=== PATIENT | female | born 1945 | race Caucasian/White ===

== ENCOUNTER 2016-12-22 19:20 | Inpatient (IN) | payer MEDICAID, MEDICARE ==
[~2016-12-22] VITALS: Ht 162.6 cm; Wt 83.9 kg
[~2016-12-22 19:20] MED LIST: ALBU2.5V13 NEB; ASCO-375 PO; Acetaminophen PO; BISA10SU12 RC; BLOO-125 IN; CALC-883 PO; DOCU100C36 PO; ESCI10TA PO; FERR-58 PO; FURO-152 PO; Folic Acid PO; HYDR-3326 PO; INSU100C; INSU100I14 SQ; INSU100V7 SQ; IPRA0.2S6 NEB; MAGN200T5 PO; MAGN400O6 PO; MULT-213 PO; MUPI22OI2 NS; NA P133E RC; OMEG-9 PO; PANT40TA2 PO; POTA-10 PO
--- NOTE | 2016-12-22 19:38 | NUR ---
Pt biba from facility for multiple complaints. Pt c/o constipation, unk last time had a BM. Pt appears lethargic and per daughter this is not base line for her. Pt easily woke and answers questions appropriately. PMD sent pt here for evaluation of the lethargy and abnormal labs. Pt resting in position of comfort for self. Resp even and unlabored. Pt maintaining >95% O2 sats on 2 L NC. Pt lungs diminished in bases. Pt's abd appears round and distended. Pt admits to pain upon palpation but currently at rest. Pt resting in position of comfort for self. Daughter at bedside. Awaiting further eval.
[2016-12-22] MEDS ORDERED: LACT10SO PO (19:53)
[2016-12-22] MEDS ORDERED: CAL HN PO (19:53)
[2016-12-22] MEDS ORDERED: SPIR25TA4 PO (19:53)
[2016-12-22] MEDS ORDERED: [UNRECOGNIZED DRUG - OTHER] PO (19:53)
[2016-12-22] MEDS ORDERED: HYDR-548 PO (19:53)
[2016-12-22] MEDS ORDERED: MIRT15TA PO (19:53)
[2016-12-22] MEDS ORDERED: CHOL10002 PO (19:53)
[2016-12-22] MEDS ORDERED: SIME80TA15 PO (19:53)
[2016-12-22] MEDS ORDERED: CRAN500C5 PO (19:53)
--- NOTE | 2016-12-22 20:00 | NUR ---
Pt c/o abd cramping and pain, feeling as though she needs to have a bm but is unable. MD notified. Awaiting further orders
[2016-12-22] MEDS ORDERED: METRONIDAZOLE 500 MG/NS 100ML 100 ML IV ONE ×2 (20:15→22:32)
[2016-12-22] MEDS ORDERED: IV NORMAL SALINE 1000 ML BAG IV ONE (20:15)
[2016-12-22] MEDS ORDERED: PIPERACILLIN SODIUM/TAZOBACTAM 3.375 G in IV DEXTROSE 5% 50 ML IV ONE (20:15)
--- NOTE | 2016-12-22 20:35 | NUR ---
Pt seen by MD. MEDINA established, labs drawn and sent.
[2016-12-22] MEDS ORDERED: PIPERACILLIN/TAZOBACTAM/D5W 50 ML IV ONE (20:52)
[2016-12-22 20:55] LABS: BASOPHILS % (AUTO) 0.2 % (0.0-2.0); EOSINOPHILS # (AUTO) 0.2 K/uL (0.0-0.7); EOSINOPHILS % (AUTO) 4.7 % (0.0-7.0); HEMATOCRIT 32.5 % (37-47); HEMOGLOBIN 11.2 G/DL (12.0-16.0); LYMPHOCYTES # (AUTO) 0.9 K/UL (0.8-4.8); LYMPHOCYTES % (AUTO) 27.1 % (20.5-51.5); MEAN CORPUSCULAR HEMOGLOBIN 31.8 UUG (27.0-31.0); MEAN CORPUSCULAR HGB CONC 35 g/dL (32.0-37.0); MEAN CORPUSCULAR VOLUME 92.1 FL (81.0-99.0); MONOCYTES # (AUTO) 0.3 K/UL (0.1-1.30); MONOCYTES % (AUTO) 7.9 % (0.0-11.0); NEUTROPHILS # (AUTO) 1.8 K/UL (1.8-8.9); NEUTROPHILS % (AUTO) 60.1 % (38.5-71.5); RED BLOOD CELL COUNT(AUTO) 3.52 MIL/UL (4.2-5.4); WHITE BLOOD COUNT (AUTO) 3.2 K/UL (4.0-11.2)
[2016-12-22 20:56] LABS: CARBON DIOXIDE 29 mmol/L (21-32); CHLORIDE 107 mmol/L (98-107); CREATININE 1.2 mg/dL (0.6-1.3); GLUCOSE 140 mg/dL (74-106); POTASSIUM 6.1 mmol/L (3.5-5.1); UREA NITROGEN, BLOOD 51 mg/dL (7-18)
[2016-12-22 20:59] LABS: PLATELET COUNT (AUTO) 57 K/UL (150-450)
--- NOTE | 2016-12-22 20:59 | NUR ---
Pt cleansed and changed. Pt had large BM. Pt conts to c/o abd pain. MD aware. [facility]
[2016-12-22 21:04] LABS: *BILIRUBIN,URIN NEGATIVE (NEGATIVE); *BLOOD, URINE NEGATIVE (NEGATIVE); *CLARITY,URINE CLEAR (CLEAR); *COLOR,URINE YELLOW (YELLOW); *KETONES,URINE NEGATIVE (NEGATIVE); *PROTEIN,URINE NEGATIVE (NEGATIVE); *UROBILINOGEN,URINE 0.2 E.U./dl (NORMAL); LEUKOCYTE ESTERASE ,URINE NEGATIVE (NEGATIVE); NITRITE, URINE NEGATIVE (NEGATIVE); UGLUCOSE NEGATIVE (NEGATIVE)
[2016-12-22 21:08] LABS: ALANINE AMINOTRANSFERASE 66 U/L (14-59); ALKALINE PHOSPHATASE 91 U/L (50-136); ASPARTATE AMINOTRANSFERASE 60 U/L (15-37); BILIRUBIN,DIRECT 0.2 mg/dL (0.0-0.2); BILIRUBIN,TOTAL 0.5 mg/dL (0.2-1.0); TOTAL PROTEIN, SERUM 8.1 g/dL (6.4-8.2)
[2016-12-22 21:12] LABS: BAND % (MANUAL) 1 % (0-10); EOSINOPHILS % (MANUAL) 5 % (0-8); LYMPHOCYTES % (MANUAL) 25 % (20-40); MONOCYTES % (MANUAL) 6 % (2-10); NEUTROPHILS % (MANUAL) 63 % (42-75)
[2016-12-22 21:16] LABS: SQUAMOUS EPITHELIAL CELL,UR FEW /HPF (NONE SEEN); WBC,URINE NONE SEEN /HPF (0-3)
--- NOTE | 2016-12-22 21:32 | NUR ---
Pt returned from CT via gurney. Fluid bolus started. First ABT infusion started, will monitor for any adverse reactions. Pt cont to moan and amada c/o abd pain. MD notified. Awaiting further orders.
[2016-12-22] MEDS ORDERED: FUROSEMIDE 20 MG/2 ML VIAL IV ONE (21:45)
[2016-12-22] MEDS ORDERED: SODIUM BICARBONATE 8.4% 50 MEQ/50 ML DISP.SYRIN IV ONE ×2 (21:45→22:25)
--- NOTE | 2016-12-22 21:59 | NUR ---
IV infiltrated. IV dc'd, catheter intact. Drsg applied. Second IV established, fluids and ABT infusion resumed.
[2016-12-22] MEDS ORDERED: HYDROMORPHONE 1 MG/1 ML DISP.SYRIN IV ONE (22:15)
[2016-12-22] MEDS ORDERED: ONDANSETRON IV *ER 4 MG/2 ML VIAL IV ONE (22:15)
[2016-12-22] MEDS ORDERED: FUROSEMIDE 40 MG/4 ML VIAL ONE (22:24)
[2016-12-22] MEDS ORDERED: ONDANSETRON 4 MG/2 ML VIAL ONE (22:25)
[2016-12-22] MEDS ORDERED: HYDROMORPHONE 1 MG/1 ML DISP.SYRIN ONE (22:25)
--- NOTE | 2016-12-22 22:47 | NUR ---
Report called to MARKELL Nowak. Preparing to transfer pt to the floor
--- NOTE | 2016-12-22 23:15 | NUR ---
RECEIVED PT FROM ER VIA [facility],ACCOMPANIED BY RYNA(PT'S DAUGHTER);PER PT'S DAUGHTER STATED THAT SHE'S CALLED FROM SNF W/C/O PT HAD SOB,ABDOMINAL PAIN,AT THAT TIME;PT'S CONFUSED.UPON ADMISSION,PT'S A/A/O X3-4;DENIED OF PAIN OR ANY DISCOMFORT,STATED THAT"I'M HUNGRY".UNIT ORIENTATION'S GIVEN TO PT AND HER DAUGHTER;THEY VERBALIZED UNDERSTANDING AND COOPERATIVE.PER DAUGHTER STATED THAT"MY MOM'S BED BOUND FOR 2 YEARS".CALLED FOR ADMISSION ORDER.
[2016-12-22 23:20] VITALS: BP 137/72
[2016-12-22] MEDS ORDERED: HYDROCODONE/APAP 10-325 MG TABLET PO PRN (23:45)
[2016-12-22] MEDS ORDERED: ZOLPIDEM 5 MG TABLET PO PRN (23:45)
[2016-12-22] MEDS ORDERED: SIMETHICONE 80 MG TAB.CHEW PO PRN (23:45)
[2016-12-22] MEDS ORDERED: ACETAMINOPHEN 325 MG TABLET PO PRN (23:45)
[2016-12-22] MEDS ORDERED: ONDANSETRON 4 MG/2 ML VIAL IV PRN (23:45)
[2016-12-22] MEDS ORDERED: FLEET ENEMA 133 ML BOTTLE RC PRN (23:45)
[2016-12-22] MEDS ORDERED: MAGNESIUM HYDROXIDE 30 ML LIQUID UDC PO PRN ×2 (23:45)
[2016-12-22] MEDS ORDERED: Z GUARD REMEDY PASTE 57 GM TUBE TOP PRN (23:45)
[2016-12-22] MEDS ORDERED: HYDROCODONE/APAP 5-325MG TABLET PO PRN (23:45)
--- NOTE | 2016-12-23 | NUR ---
ORDER'S GIVEN FROM MD;CARRIED IT OUT AND UPDATED THE PLAN OF CARE TO PT AND HER DAUGHTER;THEY VERBALIZED UNDERSTANDING.SKIN CARE AND REPOSITION.SNACK'S GIVEN TO PT REQUEST;PT TOLERATED WELL NOTED.TELEMETRY'S SR 68/MIN NOTED.KEPT COMFORT.BED ALARM'S ON.CONTINUED MONITORING TO PT.
--- NOTE | 2016-12-23 02:35 | NUR ---
PT'S CRYING AND C/O ABDOMINAL PAIN 10/10;NORCO 10 MG X2 TABS WERE GIVEN TO PT;EDUCATED TO PT;ASSISTAED TO REPOSITION;PERINEAL CARE DUE TO URINATION,KEPT COMFORT;20 MINUTES LATER,PT STATED THAT SHE FELT BETTER,PUT ON LEO'S POSITION.CONTINUED MONITORING TO PT.
[2016-12-23] MEDS ORDERED: HYDROCODONE/APAP 10-325 MG TABLET ONE (02:46)
[2016-12-23 03:40] VITALS: BP 136/70
--- NOTE | 2016-12-23 03:40 | NUR ---
PT SLEPT ONLY FOR 30 MINUTES;WOKE UP,SHE'S SCREAMING,CRYING;STATED THAT"I HAVE VERY BAD PAIN";CALLED [facility] WHO'S SENIOR SYSTEMS PROGRAMMER;GOT NEW ORDER;DILAUDID 1 MG IVP X1 SLOWLY;ASSISTED PT TO REPOSITION;STAYED W/HER FOR 10 MINUTES,PT'S ABLE TO SLEEP;UNLABORED BREATHING NOTED.TELEMETRY'S SR 71/MIN NOTED.CLOSELY MONITORING TO PT.
[2016-12-23] MEDS ORDERED: HYDROMORPHONE 1 MG/1 ML DISP.SYRIN IV PRN (04:00)
[2016-12-23] MEDS ORDERED: ONDANSETRON 4 MG/2 ML VIAL IV PRN (04:00)
[2016-12-23] MEDS ORDERED: HYDROMORPHONE 1 MG/1 ML DISP.SYRIN ONE (04:05)
[2016-12-23] MEDS ORDERED: ONDANSETRON 4 MG/2 ML VIAL ONE (04:48)
--- NOTE | 2016-12-23 06:30 | NUR ---
ASSISTED PT FOR AM CARE ON BED;PT'S COOPERATIVE W/ASSISTANCE,STATED THAT SHE FELT BETTER.NO DISTRESS NOTED IN THE SHIFT;NO SOB'S SEEN.BED ALARM'S ON.TELEMETRY'S SR 64/MIN.
[2016-12-23 06:32] LABS: BASOPHILS % (AUTO) 0.4 % (0.0-2.0); EOSINOPHILS # (AUTO) 0.1 K/uL (0.0-0.7); EOSINOPHILS % (AUTO) 2.4 % (0.0-7.0); HEMATOCRIT 32.7 % (37-47); LYMPHOCYTES # (AUTO) 0.6 K/UL (0.8-4.8); LYMPHOCYTES % (AUTO) 17.4 % (20.5-51.5); MEAN CORPUSCULAR HEMOGLOBIN 31.1 UUG (27.0-31.0); MEAN CORPUSCULAR HGB CONC 34 g/dL (32.0-37.0); MEAN CORPUSCULAR VOLUME 92.8 FL (81.0-99.0); MONOCYTES # (AUTO) 0.2 K/UL (0.1-1.30); MONOCYTES % (AUTO) 6.6 % (0.0-11.0); NEUTROPHILS # (AUTO) 2.8 K/UL (1.8-8.9); NEUTROPHILS % (AUTO) 73.2 % (38.5-71.5); PLATELET COUNT (AUTO) 51 K/UL (150-450); RED BLOOD CELL COUNT(AUTO) 3.53 MIL/UL (4.2-5.4); WHITE BLOOD COUNT (AUTO) 3.7 K/UL (4.0-11.2)
[2016-12-23 07:04] LABS: CARBON DIOXIDE 28 mmol/L (21-32); CHLORIDE 111 mmol/L (98-107); CHOLESTEROL 70 mg/dL (<200); CREATININE 1.4 mg/dL (0.6-1.3); GLUCOSE 161 mg/dL (74-106); HDL CHOLESTEROL 50 mg/dL (40-60); MAGNESIUM 2.2 mg/dL (1.8-2.4); PHOSPHOROUS 5.1 mg/dL (2.5-4.9); TRIGLYCERIDES 20 MG/DL (30-150); UREA NITROGEN, BLOOD 49 mg/dL (7-18)
[2016-12-23] MEDS ORDERED: BLOOD SUGAR DIAGNOSTIC 1 EACH STRIP VI SCH (07:30)
[2016-12-23] MEDS: FUROSEMIDE 20 MG TABLET PO SCH (08:20)
[2016-12-23] MEDS: CHOLECALCIFEROL 1,000 UNIT TABLET PO SCH (08:20)
[2016-12-23] MEDS: PANTOPRAZOLE SODIUM 40 MG TABLET.DR PO SCH (08:20)
[2016-12-23] MEDS: BISACODYL 10 MG SUPP.RECT RC SCH (08:21)
[2016-12-23] MEDS: FERROUS SULFATE 325 MG TABEC PO SCH (08:21)
[2016-12-23] MEDS: CALCIUM CARB/VITAMIN D 500MG-200UNITS TABLET PO SCH ×2 (08:21→17:17)
--- NOTE | 2016-12-23 08:30 | NUR ---
Patient sleepy, total feed, swallows pill well. O2 2L NC in place, no resp distress noted. Applied luisa. SCDs. Tele monitor= SR 70 at this time. All needs attended. Encouraged to call for any assistance, placed call light within hand reach. Will continue to monitor.
[2016-12-23] MEDS ORDERED: [UNRECOGNIZED DRUG - OTHER] PO SCH (09:00)
[2016-12-23] MEDS ORDERED: Medication Not On Formulary EA (Cranberry Extract (Cranberry Concentrate) 1,680 MG) PO SCH (09:00)
[2016-12-23 10:15] LABS: BAND % (MANUAL) 2 % (0-10); EOSINOPHILS % (MANUAL) 3 % (0-8); LYMPHOCYTES % (MANUAL) 12 % (20-40); MONOCYTES % (MANUAL) 5 % (2-10); NEUTROPHILS % (MANUAL) 78 % (42-75)
[2016-12-23] MEDS ORDERED: HYDROCODONE/APAP 10-325 MG TABLET PO PRN (10:28)
[2016-12-23] MEDS: OMEGA-3 FATTY ACIDS/FISH OIL CAPSULE PO SCH ×3 (11:30→17:17)
--- NOTE | 2016-12-23 11:30 | NUR ---
Aministered fish oil capsule, scanned okay but computer still showed that it wasn't, even though showed it was scanned on right side column. I entered not given to remove due time of capsule.....was given at 11:33.
[2016-12-23] MEDS: MAGNESIUM OXIDE 400 MG TABLET PO SCH (11:33)
[2016-12-23] MEDS: MULTIVIT, IRON, MIN NO. 8, FA TABLET PO SCH (11:33)
[2016-12-23] MEDS: SPIRONOLACTONE 25 MG TABLET PO SCH (11:33)
[2016-12-23] MEDS: LACTULOSE 20 G/30 ML LIQUID UDC PO SCH ×3 (11:33→17:17)
[2016-12-23 11:47] VITALS: BP 103/53
[2016-12-23] MEDS: PROTEIN SUPPLEMENT (PROSTAT) 30 ML LIQUID PO SCH ×2 (11:56→17:20)
[2016-12-23] MEDS ORDERED: ENOXAPARIN SODIUM 40 MG/0.4 ML DISP.SYRIN SQ SCH (12:00)
[2016-12-23] MEDS ORDERED: INSULIN REGULAR, HUMAN 300 UNIT/3 ML VIAL SQ PRN (12:15)
[2016-12-23] MEDS ORDERED: DEXTROSE 50% 50 ML DISP.SYRIN IV PRN (12:15)
--- NOTE | 2016-12-23 13:15 | NUR ---
D/C'd tele monitor as per Ruby Johnson, N.P. SR-71 at this time.
[2016-12-23] MEDS: IV NS 1000 ML 1,000 ML IV PRN (13:30)
--- NOTE | 2016-12-23 15:30 | NUR ---
Patient's son at bedside requetig to speak to Dr. Leach. Informed him that Ruby Johnson N.P. was here to see patient and entered new orders. Advised him of patient's lab results, meds admin.,etc. Saw Dr. Leach at nursing station and asked me to ask him to come to patients' room. Messaged delivered to .
[2016-12-23 16:00] VITALS: BP 116/56
[2016-12-23] MEDS: BLOOD SUGAR DIAGNOSTIC 1 EACH STRIP VI SCH ×2 (17:20→20:31)
--- NOTE | 2016-12-23 17:40 | NUR ---
I changed patients diet at noon time from cardiac regular to [id number]. Patient does not have teeth. Patient ate 90% of dinner. Upon finishing dinner, patient began to cry, stating she missess her daughter and she wants to see her. Patients son just left after staying with patient almost 4 hours. Patient not as lethargic as this morning. Lactulose X2 and DUlcolax supp given today. Patient has medium size soft brown BM. WIll continue to monitor and endorse to machine fitter.
--- NOTE | 2016-12-23 18:30 | NUR ---
Patient's daughter at bedside, states patient is in pain. Requesting Bruni X1 tab. Administered. Will continue to monitor and ask shift engineer to reassess patient at 1934.
[2016-12-23] MEDS: HYDROCODONE/APAP 10-325 MG TABLET PO PRN (18:34)
[2016-12-23 19:00] VITALS: BP 119/54
--- NOTE | 2016-12-23 19:45 | NUR ---
PATIENT AWAKE IN BED WITH DAUGHTER AT BEDSIDE. PATIENT IS A/OX4. DENIES PAIN OR DISCOMFORT. NO RESP. DISTRESS NOTED, CONTINUED ON O2 2L NC SATING WELL. VS WNL. BED ALARM ON. CALL LIGHT IN REACH. ALL NEEDS ATTENDED. WILL CONTINUE TO MONITOR. Addendum: 12/25/16 at 0431 by COLIN SHANKS LVN PLEASE DISREGARD. WRONG DATE.
--- NOTE | 2016-12-23 19:45 | NUR ---
PATIENT AWAKE IN BED. A/O X3. DENIES PAIN AT THIS TIME. NO RESP. DISTRESS NOTED. ON O2 2L NC SATING 96%. ALL OTHER VSS. IVF INFUSING WELL TO LEFT FA #20 GAUGE. BED ALARM ON. CALL LIGHT IN REACH. ALL NEEDS ATTENDED. WILL CONTINUE TO MONITOR AND ASSESS.
--- NOTE | 2016-12-23 20:25 | NUR ---
PATIENT AWAKE IN BED. HAVING LARGE LOOSE BOWL MOVEMENTS. STOOL IS DARK BLACK COLORED AND RED COLOR NOTED IN DIAPER. NOTIFIED DR. ESPITIA FOR FURTHER ORDERS. STOOL FOR OB SENT TO LAB. WILL CONTINUE TO MONITOR.
[2016-12-23] MEDS: MIRTAZAPINE 15 MG TABLET PO SCH (20:26)
[2016-12-23 20:41] LABS: *OCCULT BLOOD STOOL POSITIVE (NEGATIVE)
[2016-12-24 05:00] VITALS: BP 107/55
[2016-12-24] MEDS: IV NS 1000 ML 1,000 ML IV PRN (05:55)
--- NOTE | 2016-12-24 06:00 | NUR ---
PATIENT RESTING IN BED. SLEPT WELL THROUGHOUT THE NIGHT. PATIENT HAD LARGE LOOSE BM, NO BLOOD NOTED IN DIAPER. VS WNL. DENIES PAIN OR DISCOMFORT. NO RESP. DISTRESS NOTED. BED ALARM ON. CALL LIGHT IN REACH. ALL NEEDS ATTENDED.
[2016-12-24] MEDS: PANTOPRAZOLE SODIUM 40 MG TABLET.DR PO SCH (06:01)
[2016-12-24] MEDS: BLOOD SUGAR DIAGNOSTIC 1 EACH STRIP VI SCH ×4 (06:31→20:44)
[2016-12-24 06:52] LABS: BASOPHILS % (AUTO) 0.5 % (0.0-2.0); EOSINOPHILS # (AUTO) 0.1 K/uL (0.0-0.7); EOSINOPHILS % (AUTO) 4.4 % (0.0-7.0); LYMPHOCYTES # (AUTO) 0.8 K/UL (0.8-4.8); LYMPHOCYTES % (AUTO) 31.2 % (20.5-51.5); MEAN CORPUSCULAR HEMOGLOBIN 30.4 UUG (27.0-31.0); MEAN CORPUSCULAR HGB CONC 33 g/dL (32.0-37.0); MEAN CORPUSCULAR VOLUME 92.4 FL (81.0-99.0); MONOCYTES # (AUTO) 0.2 K/UL (0.1-1.30); MONOCYTES % (AUTO) 8.5 % (0.0-11.0); NEUTROPHILS # (AUTO) 1.4 K/UL (1.8-8.9); NEUTROPHILS % (AUTO) 55.4 % (38.5-71.5)
[2016-12-24 06:54] LABS: HEMATOCRIT 26.8 % (37-47); HEMOGLOBIN 8.8 G/DL (12.0-16.0); WHITE BLOOD COUNT (AUTO) 2.5 K/UL (4.0-11.2)
[2016-12-24 06:57] LABS: CARBON DIOXIDE 30 mmol/L (21-32); CHLORIDE 113 mmol/L (98-107); CREATININE 1.3 mg/dL (0.6-1.3); GLUCOSE 108 mg/dL (74-106); MAGNESIUM 2.4 mg/dL (1.8-2.4); PHOSPHOROUS 4.2 mg/dL (2.5-4.9); PLATELET COUNT (AUTO) 49 K/UL (150-450); POTASSIUM 4.5 mmol/L (3.5-5.1); UREA NITROGEN, BLOOD 54 mg/dL (7-18)
[2016-12-24] MEDS ORDERED: PANTOPRAZOLE SODIUM 40 MG TABLET.DR PO SCH (07:00)
--- NOTE | 2016-12-24 07:10 | NUR ---
RECEIVED REPORT FROM LAB REGARDING CRITICAL LAB VALUES. CALLED OUT TO DR. ESPITIA FOR FURTHER ORDERS. WILL CONTINUE TO MONITOR.
--- NOTE | 2016-12-24 07:44 | NUR ---
SPOKE WITH DR. ESPITIA. RECEIVED VERBAL ORDER TO HOLD BLOOD THINNERS. INFORMED MD THAT PATIENT IS NOT ON ANY BLOOD THINNER AT THIS TIME. NO ADDITIONAL ORDERS NOTED. ENDORSED TO AM SHIFT, ALL NEEDS ATTENDED. WILL CONTINUE TO MONITOR.
[2016-12-24] MEDS: LACTULOSE 20 G/30 ML LIQUID UDC PO SCH (08:54)
[2016-12-24] MEDS: FUROSEMIDE 20 MG TABLET PO SCH (08:54)
[2016-12-24] MEDS: OMEGA-3 FATTY ACIDS/FISH OIL CAPSULE PO SCH ×3 (08:54→17:38)
[2016-12-24] MEDS: CALCIUM CARB/VITAMIN D 500MG-200UNITS TABLET PO SCH ×2 (08:55→17:39)
[2016-12-24] MEDS: CHOLECALCIFEROL 1,000 UNIT TABLET PO SCH (08:55)
[2016-12-24] MEDS: SPIRONOLACTONE 25 MG TABLET PO SCH (08:55)
[2016-12-24] MEDS: MAGNESIUM OXIDE 400 MG TABLET PO SCH (08:55)
[2016-12-24] MEDS: MULTIVIT, IRON, MIN NO. 8, FA TABLET PO SCH (08:55)
[2016-12-24] MEDS: FERROUS SULFATE 325 MG TABEC PO SCH (08:55)
[2016-12-24] MEDS: BISACODYL 10 MG SUPP.RECT RC SCH (08:56)
[2016-12-24] MEDS: PROTEIN SUPPLEMENT (PROSTAT) 30 ML LIQUID PO SCH ×3 (08:57→17:39)
[2016-12-24] MEDS ORDERED: LACTULOSE 20 G/30 ML LIQUID UDC PO PRN (10:00)
[2016-12-24] MEDS: HYDROCODONE/APAP 10-325 MG TABLET PO PRN ×2 (10:20→17:39)
[2016-12-24 11:04] VITALS: BP 126/61
[2016-12-24 12:16] LABS: BASOPHILS % (MANUAL) 1 % (0-2); EOSINOPHILS % (MANUAL) 3 % (0-8); LYMPHOCYTES % (MANUAL) 30 % (20-40); MONOCYTES % (MANUAL) 6 % (2-10); NEUTROPHILS % (MANUAL) 60 % (42-75)
[2016-12-24 15:03] VITALS: BP 109/55
[2016-12-24 19:00] VITALS: BP 99/50
--- NOTE | 2016-12-24 19:00 | NUR ---
PT. RESTING IN BED AND ABLE TO REPOSITION WITH ASSIST Q 2 HRS. 2L VIA N/C. GOOD APPETITE. INCONTINENCE CARE PRN. DARK STOOL TODAY PER CIVIL ENGINEERING SPECIALIST. STOOL COLLECTION PENDING. GOOD PAIN CONTROL. NO ACUTE DISTRESS.
--- NOTE | 2016-12-24 19:45 | NUR ---
PATIENT AWAKE IN BED WITH DAUGHTER AT BEDSIDE. PATIENT IS A/OX4. DENIES PAIN OR DISCOMFORT. NO RESP. DISTRESS NOTED, CONTINUED ON O2 2L NC SATING WELL. VS WNL. BED ALARM ON. CALL LIGHT IN REACH. ALL NEEDS ATTENDED. WILL CONTINUE TO MONITOR.
[2016-12-24] MEDS: MIRTAZAPINE 15 MG TABLET PO SCH (20:44)
--- NOTE | 2016-12-24 21:00 | NUR ---
PATIENTS BLOOD SUGAR 157. PATIENT REFUSED INSULIN TO BE GIVEN. WILL CONTINUE TO MONITOR.
[2016-12-25 05:00] VITALS: BP 107/48
[2016-12-25] MEDS: PANTOPRAZOLE SODIUM 40 MG TABLET.DR PO SCH (06:10)
--- NOTE | 2016-12-25 06:20 | NUR ---
PATIENT REFUSED AM LAB DRAWS.
[2016-12-25] MEDS: BLOOD SUGAR DIAGNOSTIC 1 EACH STRIP VI SCH ×2 (06:39→11:52)
--- NOTE | 2016-12-25 06:49 | NUR ---
PATIENT AWAKE IN BED. PATIENT STATED THAT SHE DID NOT REFUSE ANY LAB DRAWS THIS MORNING. WHEN APPROACHED BY HOTBED OPERATOR PATIENT STATED SHE WAS STILL HALF-ASLEEP. PATIENT WANTS HER LABS DRAWN. CALLED OUT TO LAB TO RE-DRAW.
[2016-12-25] MEDS: OMEGA-3 FATTY ACIDS/FISH OIL CAPSULE PO SCH ×2 (07:56→11:53)
[2016-12-25] MEDS: PROTEIN SUPPLEMENT (PROSTAT) 30 ML LIQUID PO SCH ×2 (07:57→11:54)
[2016-12-25] MEDS: FUROSEMIDE 20 MG TABLET PO SCH (08:01)
[2016-12-25] MEDS: SPIRONOLACTONE 25 MG TABLET PO SCH (08:01)
[2016-12-25] MEDS: CALCIUM CARB/VITAMIN D 500MG-200UNITS TABLET PO SCH (08:01)
[2016-12-25] MEDS: MULTIVIT, IRON, MIN NO. 8, FA TABLET PO SCH (08:01)
[2016-12-25] MEDS: FERROUS SULFATE 325 MG TABEC PO SCH (08:01)
[2016-12-25] MEDS: CHOLECALCIFEROL 1,000 UNIT TABLET PO SCH (08:01)
[2016-12-25] MEDS: MAGNESIUM OXIDE 400 MG TABLET PO SCH (08:02)
[2016-12-25 08:19] LABS: BASOPHILS % (AUTO) 0.4 % (0.0-2.0); EOSINOPHILS # (AUTO) 0.1 K/uL (0.0-0.7); EOSINOPHILS % (AUTO) 5.4 % (0.0-7.0); HEMATOCRIT 26.5 % (37-47); HEMOGLOBIN 8.8 G/DL (12.0-16.0); LYMPHOCYTES # (AUTO) 0.8 K/UL (0.8-4.8); LYMPHOCYTES % (AUTO) 33.3 % (20.5-51.5); MEAN CORPUSCULAR HEMOGLOBIN 30.4 UUG (27.0-31.0); MEAN CORPUSCULAR HGB CONC 33 g/dL (32.0-37.0); MEAN CORPUSCULAR VOLUME 91.8 FL (81.0-99.0); MONOCYTES # (AUTO) 0.2 K/UL (0.1-1.30); MONOCYTES % (AUTO) 7.4 % (0.0-11.0); NEUTROPHILS # (AUTO) 1.2 K/UL (1.8-8.9); NEUTROPHILS % (AUTO) 53.5 % (38.5-71.5); RED BLOOD CELL COUNT(AUTO) 2.89 MIL/UL (4.2-5.4)
[2016-12-25] MEDS: HYDROCODONE/APAP 10-325 MG TABLET PO PRN ×2 (08:20→16:55)
--- NOTE | 2016-12-25 08:20 | NUR ---
PATIENT IS AWAKE ALERT AND ORIENTED STATED THAT SHE HAS GENERALISED PAIN IN HER SHOULDERS BACK ETC MEDICATED ORDERED.NO S/S OF HYPO/HYPERGLYCEMIC REACTIONS AT THIS TIME.MADE COMFORTABLE.
[2016-12-25] MEDS: BISACODYL 10 MG SUPP.RECT RC SCH (08:21)
[2016-12-25 08:47] LABS: CARBON DIOXIDE 30 mmol/L (21-32); CHLORIDE 107 mmol/L (98-107); CREATININE 1.1 mg/dL (0.6-1.3); GLUCOSE 103 mg/dL (74-106); MAGNESIUM 2.2 mg/dL (1.8-2.4); PHOSPHOROUS 3.3 mg/dL (2.5-4.9); UREA NITROGEN, BLOOD 48 mg/dL (7-18)
[2016-12-25 08:52] LABS: WHITE BLOOD COUNT (AUTO) 2.3 K/UL (4.0-11.2)
[2016-12-25 08:55] LABS: PLATELET COUNT (AUTO) 48 K/UL (150-450)
--- NOTE | 2016-12-25 09:00 | NUR ---
RECEIVED A CALL FROM THE LAB [place] [phone] [place] [phone] YESTERDAY INFORMED SIERRA RAO WITH NO NEW ORDERS AT THIS TIME.
[2016-12-25 10:14] LABS: BASOPHILS % (MANUAL) 1 % (0-2); EOSINOPHILS % (MANUAL) 5 % (0-8); LYMPHOCYTES % (MANUAL) 32 % (20-40); MONOCYTES % (MANUAL) 7 % (2-10); NEUTROPHILS % (MANUAL) 54 % (42-75)
[2016-12-25 10:19] LABS: REACTIVE LYMPHOCYTES 1 % (0-0)
--- NOTE | 2016-12-25 10:49 | NUR ---
Discharge Plan: The patient's discharge plan is to return back to [facility] [ ; [address] [place] [address]] once medically cleared. Spoke to Caty, hallie from [facility], who confirmed that they will re-admit the patient once stable. Spoke with Adolfo [[phone]] who is aware and agreeable with the discharge plan.
[2016-12-25 11:38] VITALS: BP 118/47
--- NOTE | 2016-12-25 13:41 | NUR ---
NEW ORDERS NOTED FROM SIERRA RAO TO DISCHARGE PATIENT BACK TO THE [facility] TODAY AND NOTED
[2016-12-25 16:06] VITALS: BP 103/52
--- NOTE | 2016-12-25 16:45 | NUR ---
CALLED THE [facility] AND REPORT GIVEN TO THE RN WAVE SOLDERING MACHINE OPERATOR FOR CONTINUING CARE.
--- NOTE | 2016-12-25 16:55 | NUR ---
THE AMBULANCE IS HERE TO ROOF FOREMAN THE PATIENT AND SHE STATED THAT SHE WANTS A PAIN MEDICATION BEFORE SHE IS PICKED UP PAIN MEDICATION GIVEN ORDERED AND PATIENT WAS INSTRUCTED TO FOLLOW UP WITH HER PRIMARY DOCTOR WITHIN THE NEXT ONE TO TWO WEEKS AND SHE EXPRESSED UNDERSTANDING PATIENTS SON AND DAUGHTER IS AT THE BEDSIDE.
--- NOTE | 2016-12-25 17:10 | NUR ---
PATIENT NOW LEAVING THE FACILITY AND STATED FEELS BETTER ALREADY PAIN LEVINE.
== END 2016-12-25 17:10 | DRG 279 ==
LOC: ER 19:21 → TELE 22:53 → MED 12-23 13:30
PROVIDERS: ADMIT Family Medicine; ATTEND Family Medicine
DX: K72.90 Hepatic failure, unspecified without coma (principal); N17.0 Acute kidney failure with tubular necrosis; E43 Unspecified severe protein-calorie malnutrition; I50.33 Acute on chronic diastolic (congestive) heart failure; D61.818 Other pancytopenia; C22.0 Liver cell carcinoma; K57.91 Diverticulosis of intestine, part unspecified, without perforation or abscess with bleeding; D68.59 Other primary thrombophilia; D68.4 Acquired coagulation factor deficiency; E87.5 Hyperkalemia; I11.0 Hypertensive heart disease with heart failure; B19.20 Unspecified viral hepatitis C without hepatic coma; E66.9 Obesity, unspecified; Z68.31 Body mass index [BMI] 31.0-31.9, adult; Z74.09 Other reduced mobility; K59.09 Other constipation; M81.0 Age-related osteoporosis without current pathological fracture; K74.69 Other cirrhosis of liver; T50.0X5A Adverse effect of mineralocorticoids and their antagonists, initial encounter; Y92.129 Unspecified place in nursing home as the place of occurrence of the external cause; Z87.891 Personal history of nicotine dependence; K29.70 Gastritis, unspecified, without bleeding; J44.9 Chronic obstructive pulmonary disease, unspecified; F03.90 Unspecified dementia, unspecified severity, without behavioral disturbance, psychotic disturbance, mood disturbance, and anxiety; E78.5 Hyperlipidemia, unspecified; E11.9 Type 2 diabetes mellitus without complications; M19.90 Unspecified osteoarthritis, unspecified site; Z79.899 Other long term (current) drug therapy; Z79.4 Long term (current) use of insulin
CPT/HCPCS: 36415; 51702; 70030-TC; 71010; 83605; 83735; 84100; 85025; 85730; 87040; 87086; 92610; 93005; A4663; J1170; J1815; J1940; J2405; J2543; J3490; J7030; J7040

== ENCOUNTER 2017-01-08 20:22 | Inpatient (IN) | payer MEDICAID, MEDICARE ==
[~2017-01-08] VITALS: Ht 162.6 cm; Wt 79.1 kg
[~2017-01-08 20:22] MED LIST changes: -ALBU2.5V13 NEB; -ASCO-375 PO; +CAL HN PO; +CHOL10002 PO; +CRAN500C5 PO; -DOCU100C36 PO; -ESCI10TA PO; -Folic Acid PO; -HYDR-3326 PO; +HYDR-548 PO; -INSU100C; -INSU100I14 SQ; -IPRA0.2S6 NEB; +LACT10SO PO; +MIRT15TA PO; -MUPI22OI2 NS; +SIME80TA15 PO; +SPIR25TA4 PO; +[UNRECOGNIZED DRUG - OTHER] PO
[2017-01-08] MEDS ORDERED: ZOLP5TAB8 PO (20:39)
[2017-01-08] MEDS ORDERED: HYDR-3980 PO ×2 (20:39)
[2017-01-08] MEDS ORDERED: INSU100V10 SQ (20:39)
[2017-01-08] MEDS ORDERED: QUET25TA PO ×2 (20:39)
[2017-01-08] MEDS ORDERED: ACET-2154 PO (20:39)
[2017-01-08] MEDS ORDERED: MAG355OR18 PO (20:39)
[2017-01-08] MEDS ORDERED: CALC-20 PO (20:39)
--- NOTE | 2017-01-08 20:48 | NUR ---
PER ER CONTACTED ONCOLOGIST AMELIA AUGUSTE MD @ CELL # , AND OFFICE # WHICH IS FORWARDED TO CELL, LEFT MESSAGE TO C/B EMERGENCY NUMBER ...
[2017-01-08 20:57] LABS: BASOPHILS % (AUTO) 0.4 % (0.0-2.0); EOSINOPHILS # (AUTO) 0.1 K/uL (0.0-0.7); EOSINOPHILS % (AUTO) 5.4 % (0.0-7.0); HEMOGLOBIN 8.3 G/DL (12.0-16.0); LYMPHOCYTES # (AUTO) 0.6 K/UL (0.8-4.8); LYMPHOCYTES % (AUTO) 26.2 % (20.5-51.5); MEAN CORPUSCULAR HEMOGLOBIN 30.7 UUG (27.0-31.0); MEAN CORPUSCULAR HGB CONC 33 g/dL (32.0-37.0); MEAN CORPUSCULAR VOLUME 92.3 FL (81.0-99.0); MONOCYTES # (AUTO) 0.2 K/UL (0.1-1.30); MONOCYTES % (AUTO) 7.1 % (0.0-11.0); NEUTROPHILS # (AUTO) 1.4 K/UL (1.8-8.9); NEUTROPHILS % (AUTO) 60.9 % (38.5-71.5); PLATELET COUNT (AUTO) 61 K/UL (150-450); RED BLOOD CELL COUNT(AUTO) 2.71 MIL/UL (4.2-5.4)
[2017-01-08 21:01] LABS: CARBON DIOXIDE 28 mmol/L (21-32); CHLORIDE 108 mmol/L (98-107); GLUCOSE 166 mg/dL (74-106); POTASSIUM 4.6 mmol/L (3.5-5.1); UREA NITROGEN, BLOOD 27 mg/dL (7-18)
[2017-01-08 21:15] LABS: WHITE BLOOD COUNT (AUTO) 2.3 K/UL (4.0-11.2)
[2017-01-08 21:16] LABS: ALANINE AMINOTRANSFERASE 59 U/L (14-59); ALKALINE PHOSPHATASE 88 U/L (50-136); ASPARTATE AMINOTRANSFERASE 53 U/L (15-37); BILIRUBIN,DIRECT 0.1 mg/dL (0.0-0.2); BILIRUBIN,TOTAL 0.3 mg/dL (0.2-1.0); LIPASE 385 U/L (73-393); TOTAL PROTEIN, SERUM 6.5 g/dL (6.4-8.2)
[2017-01-08 21:25] LABS: LYMPHOCYTES % (MANUAL) 29 % (20-40); NEUTROPHILS % (MANUAL) 57 % (42-75)
[2017-01-08 21:26] LABS: EOSINOPHILS % (MANUAL) 2 % (0-8); MONOCYTES % (MANUAL) 12 % (2-10)
--- NOTE | 2017-01-08 21:55 | NUR ---
Pt. admitted to [facility], under care of Dr. Spring Belongs List completed
[2017-01-08 22:15] VITALS: BP 112/64
--- NOTE | 2017-01-08 22:15 | NUR ---
RECEIVED PT FROM ER VIA [facility]. PT IS UNDER THE CARE OF DR. HUTTON, ADMITTING DR SANCHEZ, DX: PANCYTOPENIA. BELONGING LIST DONE, ADMISSION PROCESS AND CARE PLAN INITIATED. MD'S ORDERS IN THE SYSTEM. PT IS ALERT, IN NO ACUTE DISTRESS. SAFETY MEASURES IN PLACE, CALL LIGHT WITHIN REACH, BED ALARM ON, WILL CONTINUE TO MONITOR.
[2017-01-08] MEDS ORDERED: MAGNESIUM HYDROXIDE 30 ML LIQUID UDC PO PRN (22:30)
[2017-01-08] MEDS ORDERED: BISACODYL 10 MG SUPP.RECT RC PRN (22:30)
[2017-01-08] MEDS ORDERED: MAG HYDROX/AL HYDROX/SIMETH 30 ML LIQUID UDC PO PRN (22:30)
[2017-01-08] MEDS ORDERED: FLEET ENEMA 133 ML BOTTLE RC PRN (22:30)
[2017-01-08] MEDS ORDERED: ZOLPIDEM 5 MG TABLET PO PRN (22:30)
[2017-01-08] MEDS ORDERED: ONDANSETRON 4 MG/2 ML VIAL IV PRN (22:45)
[2017-01-08] MEDS ORDERED: QUETIAPINE FUMARATE 25 MG TABLET PO PRN (22:45)
[2017-01-08] MEDS ORDERED: TRAMADOL HCL 50 MG TABLET PO PRN (22:45)
[2017-01-08] MEDS ORDERED: FILGRASTIM 300 MCG/ML VIAL SUBCUT ONE (22:45)
[2017-01-08] MEDS ORDERED: FUROSEMIDE 20 MG/2 ML VIAL IV PRN (22:45)
--- NOTE | 2017-01-08 23:00 | NUR ---
REQUESTED FROM RESEARCH AND EVALUATION MANAGER FOR MD'S ORDER OF NEUPOGEN. PER RESEARCH AND EVALUATION MANAGER, WILL DELIVER WHEN AVAILABLE.
[2017-01-09] VITALS (13 sets, daily range): BP systolic 104–130; BP diastolic 44–60
--- NOTE | 2017-01-09 06:07 | NUR ---
PT SLEPT WELL, IN NO ACUTE DISTRESS. PT NO C/O OF DISCOMFORT, CHEST PAIN, SOB. SAFETY MEASURES IN PLACE, CALL LIGHT WITHIN REACH, BED ALARM ON, BED IN LOW POSITION, SIDE RAILS UP. WILL CONTINUE TO MONITOR.
[2017-01-09 06:28] LABS: BASOPHILS % (AUTO) 0.2 % (0.0-2.0); EOSINOPHILS # (AUTO) 0.1 K/uL (0.0-0.7); EOSINOPHILS % (AUTO) 5.5 % (0.0-7.0); LYMPHOCYTES # (AUTO) 0.5 K/UL (0.8-4.8); LYMPHOCYTES % (AUTO) 25.6 % (20.5-51.5); MEAN CORPUSCULAR HEMOGLOBIN 30.6 UUG (27.0-31.0); MEAN CORPUSCULAR HGB CONC 33 g/dL (32.0-37.0); MEAN CORPUSCULAR VOLUME 93.5 FL (81.0-99.0); MONOCYTES # (AUTO) 0.2 K/UL (0.1-1.30); MONOCYTES % (AUTO) 8.2 % (0.0-11.0); NEUTROPHILS # (AUTO) 1.3 K/UL (1.8-8.9); NEUTROPHILS % (AUTO) 60.5 % (38.5-71.5); PLATELET COUNT (AUTO) 60 K/UL (150-450); RED BLOOD CELL COUNT(AUTO) 2.52 MIL/UL (4.2-5.4)
[2017-01-09 06:46] LABS: ALANINE AMINOTRANSFERASE 56 U/L (14-59); ALKALINE PHOSPHATASE 78 U/L (50-136); ASPARTATE AMINOTRANSFERASE 50 U/L (15-37); BILIRUBIN,TOTAL 0.3 mg/dL (0.2-1.0); CARBON DIOXIDE 30 mmol/L (21-32); CHLORIDE 110 mmol/L (98-107); GLUCOSE 128 mg/dL (74-106); PHOSPHOROUS 3.5 mg/dL (2.5-4.9); POTASSIUM 4.5 mmol/L (3.5-5.1); TOTAL PROTEIN, SERUM 6.2 g/dL (6.4-8.2); UREA NITROGEN, BLOOD 27 mg/dL (7-18)
[2017-01-09 07:04] LABS: HEMATOCRIT 23.5 % (37-47); HEMOGLOBIN 7.7 G/DL (12.0-16.0); WHITE BLOOD COUNT (AUTO) 2.1 K/UL (4.0-11.2)
--- NOTE | 2017-01-09 07:25 | NUR ---
PT IS LAYING IN BED COMFORTABLY. NO S/S OF RESPIRATORY DISTRESS NOTED. NC AT 3L. V/A WNL. PT'S OV IS BLOODY RESIDUE APPEARANCE, CHECKED IF THE IV STILL WORKING, PT STATES "IT BRIGGS AND HURTS". REMOVE THE PT'S OLD IV, APPLIED ICE PACK. WILL RESTART A NEW ONE. ALL SAFETY NEEDS ARE MET.
--- NOTE | 2017-01-09 07:49 | NUR ---
DR SANCHEZ AWARE OF ABNORMAL LABS,ORDERED 2 UNITS OF BLOOD TRANSFUSION
[2017-01-09] MEDS ORDERED: FUROSEMIDE 20 MG/2 ML VIAL IV ONE (08:00)
[2017-01-09] MEDS: QUETIAPINE FUMARATE 25 MG TABLET PO SCH ×3 (08:07→16:42)
[2017-01-09] MEDS: MULTIVIT, IRON, MIN NO. 8, FA TABLET PO SCH (08:07)
[2017-01-09] MEDS: CHOLECALCIFEROL 1,000 UNIT TABLET PO SCH (08:07)
[2017-01-09] MEDS: SPIRONOLACTONE 25 MG TABLET PO SCH (08:07)
[2017-01-09] MEDS: FERROUS SULFATE 325 MG TABEC PO SCH (08:07)
[2017-01-09] MEDS: FUROSEMIDE 20 MG TABLET PO SCH (08:07)
[2017-01-09] MEDS: PANTOPRAZOLE SODIUM 40 MG TABLET.DR PO SCH (08:07)
[2017-01-09 08:44] LABS: BAND % (MANUAL) 2 % (0-10); EOSINOPHILS % (MANUAL) 6 % (0-8); LYMPHOCYTES % (MANUAL) 24 % (20-40); MONOCYTES % (MANUAL) 7 % (2-10); NEUTROPHILS % (MANUAL) 61 % (42-75)
[2017-01-09] MEDS ORDERED: Medication Not On Formulary EA (Multivitamins W-Minerals (Multivitamin With Minerals) 1 PO SCH (09:00)
[2017-01-09] MEDS ORDERED: TBO-FILGRASTIM 300 MCG/0.5 ML SYRINGE SQ ONE (10:00)
--- NOTE | 2017-01-09 10:10 | NUR ---
DR. RUDD ORDERED NORCO 5-325MG PO Q8HR PRN.
[2017-01-09] MEDS ORDERED: TRAMADOL HCL 50 MG TABLET PO PRN (10:30)
[2017-01-09] MEDS: HYDROCODONE/APAP 5-325MG TABLET PO PRN ×2 (10:32→18:49)
[2017-01-09] MEDS ORDERED: Z GUARD REMEDY PASTE 57 GM TUBE TOP PRN (11:45)
[2017-01-09] MEDS ORDERED: LACTULOSE 20 G/30 ML LIQUID UDC PO PRN (13:45)
[2017-01-09] MEDS: DOCUSATE SODIUM 100 MG CAPSULE PO SCH ×2 (14:35→20:49)
[2017-01-09] MEDS: MORPHINE SULFATE 2 MG/1 ML DISP.SYRIN IV PRN (14:35)
--- NOTE | 2017-01-09 15:00 | NUR ---
pt ended blood transfusion. No transfusion allergic reactions noted. VS WNL. No respiratory distress noted.
[2017-01-09 17:40] LABS: HEMATOCRIT 28.5 % (37-47); HEMOGLOBIN 9.6 G/DL (12.0-16.0)
--- NOTE | 2017-01-09 18:04 | NUR ---
PER DR RUDD "NO NEED FOR THE SECOND UNIT OF BLOOD"
--- NOTE | 2017-01-09 19:38 | NUR ---
PT IS LAYING IN BED COMFORTABLY. NO CHANGES NOTED. VS WNL. ALL SAFETY NEEDS ARE MET. IV INTACT/PATENT. DAUGHTER IS IN PT ROOM. NO PAIN NOTED.
[2017-01-09] MEDS ORDERED: MAGNESIUM OXIDE 400 MG TABLET PO SCH (21:00)
--- NOTE | 2017-01-09 21:11 | NUR ---
RECEIVED PATIENT LAYING COMFORTABLY IN BED. DAUGHTER AT BEDSIDE. NO ACUTE DISTRESS NOTED. PATIENT IS ON 02 3L NC. PATIENT IS ALERT BUT A LITTLE WITHDRAWN. SAFETY INITIATED. CALL LIGHT WITHIN REACH. WILL CONTINUE TO MONITOR.
[2017-01-09] MEDS ORDERED: LACTULOSE 20 G/30 ML LIQUID UDC PO ONE (22:15)
[2017-01-10] MEDS: MORPHINE SULFATE 2 MG/1 ML DISP.SYRIN IV PRN (00:33)
--- NOTE | 2017-01-10 01:00 | NUR ---
DerrickGUARD APPLIED ON SACRAL AREA.
--- NOTE | 2017-01-10 01:56 | NUR ---
THREADER OPERATOR BROUGHT UP THE FIRST STEP MATTRESS, I EXPLAINED THE IMPORTANCE OF PUTTING ON THE FIRST STEP MATTRESS. HOWEVER, PATIENT STATES: "I AM COMFORTABLE RIGHT NOW, I DO NOT WANT TO BE MOVED".
[2017-01-10] MEDS ORDERED: LACTULOSE 20 G/30 ML LIQUID UDC ONE (02:23)
[2017-01-10] MEDS: HYDROCODONE/APAP 5-325MG TABLET PO PRN ×2 (02:36→10:53)
[2017-01-10 04:00] VITALS: BP 117/46
[2017-01-10] MEDS: PANTOPRAZOLE SODIUM 40 MG TABLET.DR PO SCH (06:01)
--- NOTE | 2017-01-10 06:34 | NUR ---
PATIENT SLEPT INTERMITTENTLY T/O SHIFT. NO ACUTE DISTRESS NOTED. COMFORT AND SAFETY MAINTAINED T/O SHIFT. PATIENT IS BED BOUND. TURN AND REPOSITIONED Q2H. PATIENT MADE A BM TODAY.FREQUENTLY ASKS FOR PAIN MED. MEDS GIVEN. STATED RELIEF.ALL NEEDS MET. APPLIED ZGUARD ON REDNESS ON SACRAL AREA. PATIENT REFUSED TO PUT ON SPECIALTY MATTRESS, TWICE. SHE SAID "I AM COMFORTABLT RIGHT NOW, I DO NOT WANT TO BE MOVED". VIOLET FERRO WITH ME AT THE TIME OF REFUSAL.
[2017-01-10 07:04] LABS: BASOPHILS % (AUTO) 0.4 % (0.0-2.0); EOSINOPHILS # (AUTO) 0.1 K/uL (0.0-0.7); EOSINOPHILS % (AUTO) 1.8 % (0.0-7.0); HEMATOCRIT 27.3 % (37-47); LYMPHOCYTES # (AUTO) 0.7 K/UL (0.8-4.8); LYMPHOCYTES % (AUTO) 10.4 % (20.5-51.5); MEAN CORPUSCULAR HEMOGLOBIN 30.4 UUG (27.0-31.0); MEAN CORPUSCULAR HGB CONC 33 g/dL (32.0-37.0); MEAN CORPUSCULAR VOLUME 92.3 FL (81.0-99.0); MONOCYTES # (AUTO) 0.3 K/UL (0.1-1.30); MONOCYTES % (AUTO) 4.6 % (0.0-11.0); NEUTROPHILS # (AUTO) 5.9 K/UL (1.8-8.9); NEUTROPHILS % (AUTO) 82.8 % (38.5-71.5); PLATELET COUNT (AUTO) 54 K/UL (150-450); RED BLOOD CELL COUNT(AUTO) 2.96 MIL/UL (4.2-5.4)
[2017-01-10 07:21] LABS: ALANINE AMINOTRANSFERASE 69 U/L (14-59); ALKALINE PHOSPHATASE 73 U/L (50-136); ASPARTATE AMINOTRANSFERASE 64 U/L (15-37); BILIRUBIN,TOTAL 0.5 mg/dL (0.2-1.0); CARBON DIOXIDE 32 mmol/L (21-32); CHLORIDE 110 mmol/L (98-107); CREATININE 1.1 mg/dL (0.6-1.3); GLUCOSE 141 mg/dL (74-106); MAGNESIUM 1.9 mg/dL (1.8-2.4); PHOSPHOROUS 3.2 mg/dL (2.5-4.9); POTASSIUM 4.8 mmol/L (3.5-5.1); TOTAL PROTEIN, SERUM 6.6 g/dL (6.4-8.2); UREA NITROGEN, BLOOD 29 mg/dL (7-18)
[2017-01-10] MEDS ORDERED: LACTULOSE 20 G/30 ML LIQUID UDC PO SCH (09:00)
[2017-01-10] MEDS: QUETIAPINE FUMARATE 25 MG TABLET PO SCH ×3 (09:50→17:56)
[2017-01-10] MEDS: CHOLECALCIFEROL 1,000 UNIT TABLET PO SCH (09:50)
[2017-01-10] MEDS: SPIRONOLACTONE 25 MG TABLET PO SCH (09:50)
[2017-01-10] MEDS: FERROUS SULFATE 325 MG TABEC PO SCH (09:50)
[2017-01-10] MEDS: DOCUSATE SODIUM 100 MG CAPSULE PO SCH (09:50)
[2017-01-10] MEDS: MULTIVIT, IRON, MIN NO. 8, FA TABLET PO SCH (09:50)
[2017-01-10] MEDS: FUROSEMIDE 20 MG TABLET PO SCH (09:50)
[2017-01-10 12:03] VITALS: BP 108/57
[2017-01-10] MEDS ORDERED: HYDR-3326 PO (13:57)
[2017-01-10] MEDS ORDERED: LACT10SO PO (13:57)
--- NOTE | 2017-01-10 15:15 | NUR ---
THIS RECORDER SPOKE WITH MANPREET AT [facility] [phone], WILL ACCEPT DARIAN BATES BACK TO THER FACILITY TODAY
[2017-01-10 15:20] VITALS: BP 98/50
--- NOTE | 2017-01-10 18:00 | NUR ---
discharge note: PT IS READY TO BE D/C. PT IS ON 2L NC. NO S/S OF RESPIRATORY DISTRESS NOTED. NO PAIN NOTED. ALL SAFETY NEEDS ARE MET. PT REFUSED SACRUM PICTURES. PT REPORT IS GIVEN.
--- NOTE | 2017-01-10 18:16 | NUR ---
PT REFUSED TO TAKE PICTURES OF SACRUM.
[2017-01-11 05:10] LABS: *IMMUNOGLOBULIN G, SERUM 1775 mg/dL (700-1600); IMMUNOGLOBULIN A, SERUM 450 mg/dL (64-422); IMMUNOGLOBULIN M, SERUM 55 mg/dL (26-217)
[2017-01-11 11:10] LABS: A/G RATIO 0.8 (0.7-1.7); ALBUMIN 2.7 g/dL (2.9-4.4); ALPHA-1-GLOBULIN 0.2 g/dL (0.0-0.4); ALPHA-2-GLOBULIN 0.5 g/dL (0.4-1.0); BETA GLOBULIN 0.9 g/dL (0.7-1.3); GLOBULIN, TOTAL 3.6 g/dL (2.2-3.9); M-SPIKE Not Observed g/dL (Not Observed)
== END 2017-01-10 18:30 | DRG 660 ==
LOC: ER 20:22 → MED 21:59
PROVIDERS: ADMIT Internal Medicine; ATTEND Internal Medicine
PROC: 30233N1 Transfusion of Nonautologous Red Blood Cells into Peripheral Vein, Percutaneous Approach (ICD-10-PCS; principal; 2017-01-09)
DX: D61.810 Antineoplastic chemotherapy induced pancytopenia (principal); K72.00 Acute and subacute hepatic failure without coma; E43 Unspecified severe protein-calorie malnutrition; D68.59 Other primary thrombophilia; C22.0 Liver cell carcinoma; I11.0 Hypertensive heart disease with heart failure; I50.32 Chronic diastolic (congestive) heart failure; E66.01 Morbid (severe) obesity due to excess calories; F03.90 Unspecified dementia, unspecified severity, without behavioral disturbance, psychotic disturbance, mood disturbance, and anxiety; J44.9 Chronic obstructive pulmonary disease, unspecified; K72.10 Chronic hepatic failure without coma; B19.20 Unspecified viral hepatitis C without hepatic coma; G89.4 Chronic pain syndrome; M81.0 Age-related osteoporosis without current pathological fracture; T45.1X5A Adverse effect of antineoplastic and immunosuppressive drugs, initial encounter; Y92.239 Unspecified place in hospital as the place of occurrence of the external cause; Z74.09 Other reduced mobility; Z87.891 Personal history of nicotine dependence; Z68.29 Body mass index [BMI] 29.0-29.9, adult; E78.5 Hyperlipidemia, unspecified; K59.09 Other constipation; K21.9 Gastro-esophageal reflux disease without esophagitis; Z79.899 Other long term (current) drug therapy; E11.9 Type 2 diabetes mellitus without complications; Z79.4 Long term (current) use of insulin; I45.10 Unspecified right bundle-branch block; D50.0 Iron deficiency anemia secondary to blood loss (chronic)
CPT/HCPCS: 36415; 70030-TC; 71010; 82784; 83690; 83735; 84100; 84155; 84165; 85018; 85025; 85730; 86334; 86850; 86900; 86901; 86920; 93005; A4663; J1447; J1940; J2270; J7040; P9016-BL; P9021

== ENCOUNTER 2017-02-11 15:29 | Inpatient (IN) | payer MEDICAID, MEDICARE ==
[~2017-02-11] VITALS: Ht 162.6 cm; Wt 79.8 kg
[~2017-02-11 15:29] MED LIST changes: -Acetaminophen PO; -CAL HN PO; +CALC-20 PO; -CALC-883 PO; -CRAN500C5 PO; +HYDR-3326 PO; +HYDR-3980 PO; -HYDR-548 PO; +INSU100V10 SQ; -INSU100V7 SQ; +MAG355OR18 PO; -MAGN400O6 PO; -MIRT15TA PO; -OMEG-9 PO; -POTA-10 PO; +QUET25TA PO; -SIME80TA15 PO; +ZOLP5TAB8 PO; -[UNRECOGNIZED DRUG - OTHER] PO
--- NOTE | 2017-02-11 15:37 | NUR ---
EKG done and handed to MD for evaluation
[2017-02-11] MEDS ORDERED: ACETAMINOPHEN 650 MG SUPP.RECT RC ONE ×2 (15:45→16:10)
[2017-02-11] MEDS ORDERED: LEVOFLOXACIN 750MG/D5W 150 ML IV ONE ×2 (15:45→16:10)
[2017-02-11] MEDS ORDERED: MEROPENEM 1 G in IV NORMAL SALINE 100 ML IV ONE (15:45)
[2017-02-11] MEDS ORDERED: IV NORMAL SALINE 1000 ML BAG IV ONE (15:45)
[2017-02-11] MEDS ORDERED: OLANZAPINE 10 MG VIAL IM ONE ×2 (16:00→16:17)
[2017-02-11 16:05] LABS: CARBON DIOXIDE 33 mmol/L (21-32); CHLORIDE 105 mmol/L (98-107); CREATININE 0.9 mg/dL (0.6-1.3); GLUCOSE 119 mg/dL (74-106); POTASSIUM 4.7 mmol/L (3.5-5.1); UREA NITROGEN, BLOOD 26 mg/dL (7-18)
[2017-02-11 16:06] LABS: BASOPHILS % (AUTO) 0.9 % (0.0-2.0); EOSINOPHILS % (AUTO) 0.5 % (0.0-7.0); HEMATOCRIT 30.3 % (37-47); HEMOGLOBIN 9.9 G/DL (12.0-16.0); LYMPHOCYTES # (AUTO) 0.9 K/UL (0.8-4.8); LYMPHOCYTES % (AUTO) 20.6 % (20.5-51.5); MEAN CORPUSCULAR HEMOGLOBIN 29.5 UUG (27.0-31.0); MEAN CORPUSCULAR HGB CONC 33 g/dL (32.0-37.0); MEAN CORPUSCULAR VOLUME 90.5 FL (81.0-99.0); MONOCYTES # (AUTO) 0.3 K/UL (0.1-1.30); MONOCYTES % (AUTO) 7.8 % (0.0-11.0); NEUTROPHILS % (AUTO) 70.2 % (38.5-71.5); PLATELET COUNT (AUTO) 50 K/UL (150-450); RED BLOOD CELL COUNT(AUTO) 3.35 MIL/UL (4.2-5.4); WHITE BLOOD COUNT (AUTO) 4.2 K/UL (4.0-11.2)
[2017-02-11 16:11] LABS: ALANINE AMINOTRANSFERASE 87 U/L (14-59); ALKALINE PHOSPHATASE 63 U/L (50-136); ASPARTATE AMINOTRANSFERASE 71 U/L (15-37); BILIRUBIN,DIRECT 0.3 mg/dL (0.0-0.2); BILIRUBIN,TOTAL 0.9 mg/dL (0.2-1.0); TOTAL PROTEIN, SERUM 7.4 g/dL (6.4-8.2)
[2017-02-11] MEDS ORDERED: MAGN400O6 PO (16:14)
[2017-02-11] MEDS ORDERED: ACET-2154 PO (16:14)
[2017-02-11 16:28] LABS: *BILIRUBIN,URIN NEGATIVE (NEGATIVE); *BLOOD, URINE Trace-lysed (NEGATIVE); *CLARITY,URINE CLEAR (CLEAR); *COLOR,URINE YELLOW (YELLOW); *KETONES,URINE NEGATIVE (NEGATIVE); *PROTEIN,URINE 1+ (NEGATIVE); LEUKOCYTE ESTERASE ,URINE TRACE (NEGATIVE); NITRITE, URINE NEGATIVE (NEGATIVE); PH,URINE 8.5 (5.0-8.0); UGLUCOSE NEGATIVE (NEGATIVE)
[2017-02-11] MEDS ORDERED: TRAMADOL HCL 50 MG TABLET PO ONE (16:30)
--- NOTE | 2017-02-11 16:30 | NUR ---
Patient is still constantly moaning. Patient can not tell where the "pain" is even after multiple inquiries by MD, handbook writer and patient's son. Position changes done. Listening ear provided, monitored closely.
[2017-02-11 16:39] LABS: SQUAMOUS EPITHELIAL CELL,UR FEW /HPF (NONE SEEN)
[2017-02-11 16:42] LABS: BAND % (MANUAL) 2 % (0-10); LYMPHOCYTES % (MANUAL) 18 % (20-40); MONOCYTES % (MANUAL) 7 % (2-10); NEUTROPHILS % (MANUAL) 73 % (42-75)
[2017-02-11] MEDS ORDERED: TRAMADOL HCL 50 MG TABLET ONE (16:57)
--- NOTE | 2017-02-11 17:17 | NUR ---
Perianal care provided, no BM seen.
[2017-02-11 17:45] VITALS: BP 143/67
--- NOTE | 2017-02-11 18:00 | NUR ---
Received this admission from ER per sandhya 71 yo female with the chief complaint and diagnosis of fever. Transferred to bed comfortably. Routine admission care rendered. Placed on tele SR 70. Awake, alert, oriented x 3. O2 at 2L/NC. With NS infusing from ER, continued.
[2017-02-11] MEDS ORDERED: MAGNESIUM HYDROXIDE 30 ML LIQUID UDC PO PRN (18:15)
[2017-02-11] MEDS ORDERED: ZOLPIDEM 5 MG TABLET PO PRN (18:15)
[2017-02-11] MEDS ORDERED: MAG HYDROX/AL HYDROX/SIMETH 30 ML LIQUID UDC PO PRN (18:15)
[2017-02-11] MEDS ORDERED: BISACODYL 10 MG SUPP.RECT RC PRN (18:15)
[2017-02-11] MEDS ORDERED: FLEET ENEMA 133 ML BOTTLE RC PRN (18:15)
[2017-02-11] MEDS: HYDROCODONE/APAP 10-325 MG TABLET PO PRN (18:49)
[2017-02-11] MEDS: CEFTRIAXONE 1 G in IV DEXTROSE 5% 50 ML IV SCH (19:14)
[2017-02-11 20:00] VITALS: BP 158/74
[2017-02-11] MEDS: CALCIUM CARB/VITAMIN D 600-400 MG TABLET PO SCH (20:54)
[2017-02-11] MEDS: MAGNESIUM OXIDE 400 MG TABLET PO SCH (20:54)
[2017-02-11] MEDS: LACTULOSE 20 G/30 ML LIQUID UDC PO SCH (20:54)
[2017-02-11] MEDS: INSULIN DETEMIR 300 UNIT/3 ML CARTRIDGE SQ SCH (20:58)
[2017-02-11] MEDS ORDERED: Medication Not On Formulary EA (Lactulose (Duphalac) 30 ML) PO SCH (22:00)
[2017-02-12] VITALS: BP 134/57
[2017-02-12] MEDS: HYDROCODONE/APAP 10-325 MG TABLET PO PRN (03:41)
[2017-02-12 04:16] VITALS: BP 148/60
[2017-02-12] MEDS: LACTULOSE 20 G/30 ML LIQUID UDC PO SCH ×3 (05:53→20:48)
[2017-02-12] MEDS: PANTOPRAZOLE SODIUM 40 MG TABLET.DR PO SCH (05:53)
[2017-02-12 06:43] LABS: BASOPHILS % (AUTO) 0.6 % (0.0-2.0); EOSINOPHILS % (AUTO) 1.3 % (0.0-7.0); HEMATOCRIT 29.6 % (37-47); HEMOGLOBIN 9.5 G/DL (12.0-16.0); LYMPHOCYTES # (AUTO) 0.6 K/UL (0.8-4.8); MEAN CORPUSCULAR HEMOGLOBIN 29.5 UUG (27.0-31.0); MEAN CORPUSCULAR HGB CONC 32 g/dL (32.0-37.0); MEAN CORPUSCULAR VOLUME 91.3 FL (81.0-99.0); MONOCYTES # (AUTO) 0.3 K/UL (0.1-1.30); NEUTROPHILS # (AUTO) 2.2 K/UL (1.8-8.9); NEUTROPHILS % (AUTO) 69.1 % (38.5-71.5); RED BLOOD CELL COUNT(AUTO) 3.24 MIL/UL (4.2-5.4)
--- NOTE | 2017-02-12 06:50 | NUR ---
PT ALERT,ORIENTED,BEDRIDDEN, admitted due to fever, completed bolus from ER,heplock. sleeping well until this morning ,pt woke up with back pain and given norco with good relief. get hungry but only had pudding, fingerstick check 135mg/dl. no bm overnight, incontinent of urine ,diaper changed,kept clean and dry. will continue to monitor,sinus rhythm with RBBB.
[2017-02-12 06:57] LABS: PLATELET COUNT (AUTO) 41 K/UL (150-450); WHITE BLOOD COUNT (AUTO) 3.1 K/UL (4.0-11.2)
[2017-02-12 07:26] LABS: IRON, SERUM 45 ug/dL (50-175)
[2017-02-12 07:45] LABS: ALANINE AMINOTRANSFERASE 74 U/L (14-59); ALKALINE PHOSPHATASE 54 U/L (50-136); ASPARTATE AMINOTRANSFERASE 56 U/L (15-37); BILIRUBIN,TOTAL 0.6 mg/dL (0.2-1.0); CARBON DIOXIDE 30 mmol/L (21-32); CHLORIDE 110 mmol/L (98-107); CREATININE 0.9 mg/dL (0.6-1.3); GLUCOSE 72 mg/dL (74-106); MAGNESIUM 1.8 mg/dL (1.8-2.4); PHOSPHOROUS 3.3 mg/dL (2.5-4.9); POTASSIUM 4.6 mmol/L (3.5-5.1); TOTAL PROTEIN, SERUM 7.1 g/dL (6.4-8.2); UREA NITROGEN, BLOOD 22 mg/dL (7-18)
--- NOTE | 2017-02-12 08:00 | NUR ---
RESTING WELL NO SOB CONTINUE O2 AT 2L/MIN ON FALL AND ASPIRATION PRECAUTION CALL REYES IN REACH AND BED ALARM ON NO PAIN AT THIS TIME
[2017-02-12] MEDS: CALCIUM CARB/VITAMIN D 600-400 MG TABLET PO SCH ×2 (08:37→20:48)
[2017-02-12] MEDS: MULTIVIT, IRON, MIN NO. 8, FA TABLET PO SCH (08:37)
[2017-02-12] MEDS: SPIRONOLACTONE 25 MG TABLET PO SCH (08:37)
[2017-02-12] MEDS: QUETIAPINE FUMARATE 25 MG TABLET PO SCH ×3 (08:37→17:31)
[2017-02-12] MEDS: FERROUS SULFATE 325 MG TABEC PO SCH (08:37)
[2017-02-12] MEDS: FUROSEMIDE 20 MG TABLET PO SCH (08:38)
[2017-02-12] MEDS: CHOLECALCIFEROL 1,000 UNIT TABLET PO SCH (08:38)
[2017-02-12] MEDS ORDERED: Medication Not On Formulary EA (Multivitamins W-Minerals (Multivitamin With Minerals) 1 PO SCH (09:00)
--- NOTE | 2017-02-12 11:30 | NUR ---
TEMP 100.4 TYLENOL PRN GIVEN ORDER PO FLD LOUIE WELL DR SANCHEZ WAS INFORM OF CONDITION ORDER IN CHART
[2017-02-12] MEDS: ACETAMINOPHEN 325 MG TABLET PO PRN (11:45)
[2017-02-12] MEDS ORDERED: DEXTROSE 50% 50 ML DISP.SYRIN IV PRN (12:00)
[2017-02-12 12:10] VITALS: BP 130/50
[2017-02-12] MEDS: BLOOD SUGAR DIAGNOSTIC 1 EACH STRIP VI SCH ×3 (12:25→21:29)
[2017-02-12] MEDS: INSULIN REGULAR, HUMAN 300 UNIT/3 ML VIAL SQ PRN (12:32)
[2017-02-12 12:59] LABS: BAND % (MANUAL) 2 % (0-10); EOSINOPHILS % (MANUAL) 1 % (0-8); LYMPHOCYTES % (MANUAL) 22 % (20-40); MONOCYTES % (MANUAL) 12 % (2-10); NEUTROPHILS % (MANUAL) 63 % (42-75)
[2017-02-12 15:17] VITALS: BP 112/47
[2017-02-12] MEDS: CEFTRIAXONE 1 G in IV DEXTROSE 5% 50 ML IV SCH (17:31)
--- NOTE | 2017-02-12 18:00 | NUR ---
STABLE CONDITION PAIN UNDER CONTROL NO RESPIRATORY DISTRESS SAFETY MEASURE PROVIDED BED ALARM ON AND CALL LIGHT IN REACH
[2017-02-12 20:00] VITALS: BP 122/55
[2017-02-12] MEDS: MAGNESIUM OXIDE 400 MG TABLET PO SCH (20:48)
[2017-02-12] MEDS: INSULIN DETEMIR 300 UNIT/3 ML CARTRIDGE SQ SCH (21:31)
[2017-02-12 23:58] VITALS: BP 122/69
[2017-02-13] MEDS: HYDROCODONE/APAP 10-325 MG TABLET PO PRN ×3 (02:04→13:57)
[2017-02-13 04:03] VITALS: BP 134/62
[2017-02-13 04:04] VITALS: BP 134/62
[2017-02-13] MEDS: LACTULOSE 20 G/30 ML LIQUID UDC PO SCH ×3 (05:24→21:39)
[2017-02-13] MEDS: PANTOPRAZOLE SODIUM 40 MG TABLET.DR PO SCH (05:35)
[2017-02-13 06:39] LABS: BASOPHILS % (AUTO) 0.7 % (0.0-2.0); EOSINOPHILS # (AUTO) 0.1 K/uL (0.0-0.7); EOSINOPHILS % (AUTO) 2.5 % (0.0-7.0); HEMATOCRIT 28.1 % (37-47); HEMOGLOBIN 9.3 G/DL (12.0-16.0); LYMPHOCYTES # (AUTO) 0.7 K/UL (0.8-4.8); LYMPHOCYTES % (AUTO) 23.2 % (20.5-51.5); MEAN CORPUSCULAR HEMOGLOBIN 30.3 UUG (27.0-31.0); MEAN CORPUSCULAR HGB CONC 33 g/dL (32.0-37.0); MEAN CORPUSCULAR VOLUME 91.7 FL (81.0-99.0); MONOCYTES # (AUTO) 0.3 K/UL (0.1-1.30); MONOCYTES % (AUTO) 10.3 % (0.0-11.0); NEUTROPHILS # (AUTO) 1.8 K/UL (1.8-8.9); NEUTROPHILS % (AUTO) 63.3 % (38.5-71.5); RED BLOOD CELL COUNT(AUTO) 3.06 MIL/UL (4.2-5.4); WHITE BLOOD COUNT (AUTO) 2.9 K/UL (4.0-11.2)
[2017-02-13] MEDS: BLOOD SUGAR DIAGNOSTIC 1 EACH STRIP VI SCH ×4 (06:41→21:44)
--- NOTE | 2017-02-13 06:45 | NUR ---
pt not sleeping well last night , pt stated been sleeping all day yesterday. pt had x2 bm, one very large soft.not given lactulose this morning. regular insulin coverage not given last night only levemir, pt with history of hypoglycemia in am per pt.this morning accucheck is 84mg/dl.,vss,afebrile sinus rhythm on monitor with BBB. kept atended, clean and dry.
[2017-02-13 06:46] LABS: PLATELET COUNT (AUTO) 41 K/UL (150-450)
[2017-02-13 06:59] LABS: ALANINE AMINOTRANSFERASE 62 U/L (14-59); ALKALINE PHOSPHATASE 58 U/L (50-136); ASPARTATE AMINOTRANSFERASE 42 U/L (15-37); BILIRUBIN,TOTAL 0.4 mg/dL (0.2-1.0); CARBON DIOXIDE 32 mmol/L (21-32); CHLORIDE 108 mmol/L (98-107); CREATININE 0.8 mg/dL (0.6-1.3); GLUCOSE 89 mg/dL (74-106); MAGNESIUM 1.7 mg/dL (1.8-2.4); PHOSPHOROUS 3.2 mg/dL (2.5-4.9); POTASSIUM 4.5 mmol/L (3.5-5.1); UREA NITROGEN, BLOOD 23 mg/dL (7-18)
--- NOTE | 2017-02-13 08:00 | NUR ---
AWAKE ALERT COOPERATE WELL NO PAIN OR SOB CONTINUE ON O2 AT 2L /MIN ON FALL PRECAUTION BED ALARM ON AND CALL LIGHT WITHIN REACH
[2017-02-13] MEDS: SPIRONOLACTONE 25 MG TABLET PO SCH (08:19)
[2017-02-13] MEDS: FERROUS SULFATE 325 MG TABEC PO SCH (08:19)
[2017-02-13] MEDS: FUROSEMIDE 20 MG TABLET PO SCH (08:19)
[2017-02-13] MEDS: MULTIVIT, IRON, MIN NO. 8, FA TABLET PO SCH (08:19)
[2017-02-13] MEDS: CALCIUM CARB/VITAMIN D 600-400 MG TABLET PO SCH ×2 (08:19→21:39)
[2017-02-13] MEDS: QUETIAPINE FUMARATE 25 MG TABLET PO SCH ×3 (08:19→16:39)
[2017-02-13] MEDS: CHOLECALCIFEROL 1,000 UNIT TABLET PO SCH (08:19)
[2017-02-13 11:28] VITALS: BP 139/60
[2017-02-13 14:10] LABS: BAND % (MANUAL) 2 % (0-10); EOSINOPHILS % (MANUAL) 2 % (0-8); LYMPHOCYTES % (MANUAL) 17 % (20-40); MONOCYTES % (MANUAL) 9 % (2-10); NEUTROPHILS % (MANUAL) 70 % (42-75)
[2017-02-13] MEDS: MAGNESIUM SULFATE/D5W 100 ML IV SCH ×2 (15:07→16:08)
[2017-02-13 15:24] VITALS: BP 121/52
[2017-02-13] MEDS: INSULIN REGULAR, HUMAN 300 UNIT/3 ML VIAL SQ PRN ×2 (16:41→21:48)
[2017-02-13] MEDS: CEFTRIAXONE 1 G in IV DEXTROSE 5% 50 ML IV SCH (17:17)
--- NOTE | 2017-02-13 17:30 | NUR ---
RESTING QUIET NO RESPIRATORY DISTRESS ,PAIN UNDER CONTROL SAFETY MEASURE PROVIDED CALL REYES IN REACH AND BED ALARM ON
[2017-02-13 20:22] VITALS: BP 110/45
[2017-02-13] MEDS: MAGNESIUM OXIDE 400 MG TABLET PO SCH (21:39)
[2017-02-13] MEDS: INSULIN DETEMIR 300 UNIT/3 ML CARTRIDGE SQ SCH (21:45)
--- NOTE | 2017-02-13 23:36 | NUR ---
RECEIVED PATIENT COMFORTABLE IN BED, ALERT AND ORIENTED X4. VSS. ON NC 2LPM O2 SATS AT 93% PATIENT'S GETS SOB TURNING IN BED. INCONTINENT OF URINE CHECK AND CHANGED DIAPER AND REPOSITIONED IN BED. NOTED REDNESS ON SACRAL AREA ORDERED BARRIER CREAM.
[2017-02-14] MEDS: LACTULOSE 20 G/30 ML LIQUID UDC PO SCH ×3 (05:23→21:39)
[2017-02-14 06:00] VITALS: BP 137/54
[2017-02-14] MEDS: BLOOD SUGAR DIAGNOSTIC 1 EACH STRIP VI SCH ×4 (06:37→20:58)
[2017-02-14] MEDS: PANTOPRAZOLE SODIUM 40 MG TABLET.DR PO SCH (06:37)
--- NOTE | 2017-02-14 06:42 | NUR ---
SLEPT GOOD THROUGH THE NIGHT. SHE HAD A SNACK AT 05:30 AM. SHE GOT A LITTLE ANXIOUS THIS MORNING WANTED TO CALL HER SON. OTHERWISE PATIENT IS STABLE, MAINTAINED ON O2 SUPPORT. ALL NEEDS ATTENDED.
[2017-02-14 07:12] LABS: CARBON DIOXIDE 34 mmol/L (21-32); CHLORIDE 109 mmol/L (98-107); GLUCOSE 107 mg/dL (74-106); MAGNESIUM 2.3 mg/dL (1.8-2.4); POTASSIUM 5.1 mmol/L (3.5-5.1); UREA NITROGEN, BLOOD 25 mg/dL (7-18)
[2017-02-14] MEDS: FUROSEMIDE 20 MG TABLET PO SCH (08:27)
[2017-02-14] MEDS: HYDROCODONE/APAP 10-325 MG TABLET PO PRN ×2 (08:27→18:26)
[2017-02-14] MEDS: SPIRONOLACTONE 25 MG TABLET PO SCH (08:27)
[2017-02-14] MEDS: MULTIVIT, IRON, MIN NO. 8, FA TABLET PO SCH (08:27)
[2017-02-14] MEDS: CHOLECALCIFEROL 1,000 UNIT TABLET PO SCH (08:27)
--- NOTE | 2017-02-14 08:27 | NUR ---
PATIENT CALLED AND C/O GENERALISED PAIN IN HER BACK NECK BOTH LEGS ETC MEDICATED FOR PAIN ORDERED MADE COMFORTABLE AND WILL OBSERVE.
[2017-02-14] MEDS: CALCIUM CARB/VITAMIN D 600-400 MG TABLET PO SCH ×2 (08:28→20:58)
[2017-02-14] MEDS: FERROUS SULFATE 325 MG TABEC PO SCH (08:28)
[2017-02-14] MEDS: QUETIAPINE FUMARATE 25 MG TABLET PO SCH ×3 (08:28→16:19)
[2017-02-14] MEDS: Z GUARD REMEDY PASTE 57 GM TUBE TOP SCH ×2 (08:31→21:05)
--- NOTE | 2017-02-14 11:00 | NUR ---
TEMP AT THIS TIME IS 100 .0 [address] CALL[address] AND NOTIFIED DR SANCHEZ WITH NO NEW ORDERS AT THIS TIME.COOLING MEASURES STARED AND EXTRA LINEN REMOVED AND WILL CONTINUE TO OBSERVE.
[2017-02-14 11:29] VITALS: BP 113/40
[2017-02-14 15:42] VITALS: BP 117/51
[2017-02-14] MEDS: INSULIN REGULAR, HUMAN 300 UNIT/3 ML VIAL SQ PRN ×2 (17:12→21:04)
[2017-02-14] MEDS: CEFTRIAXONE 1 G in IV DEXTROSE 5% 50 ML IV SCH (17:37)
--- NOTE | 2017-02-14 18:00 | NUR ---
STILL HAS LOW GRADE FEVER AT 99.2 REMAIN ON ANTIBIOTICS ORDERED WOTH NO ADVERSE OR ALLERGIC REACTIONS AT THIS TIME.MEDICATED WITH NORCO CRYING AND STATED HAS SEVERE GENERALIZED PAIN.WILL CONTINUE TO OBSERVE.
--- NOTE | 2017-02-14 19:30 | NUR ---
Received pt in bed, awake and watching TV. Alert and oriented x 2 with episodes of forgetfulness, verbally responsive and able to make needs known. Pt denies any pain or discomfort at this time. Continuing 2LPM NC, O2 saturation of 92%. Temperature 99.3, but no complaints of discomfort. Will continue to monitor. Bed in lowest position, locked, side rails up x 2. Safety measures and fall precautions maintained. Call light within reach. Continue current plan of care.
[2017-02-14 20:14] VITALS: BP 119/44
[2017-02-14] MEDS: MAGNESIUM OXIDE 400 MG TABLET PO SCH (20:58)
[2017-02-14] MEDS: INSULIN DETEMIR 300 UNIT/3 ML CARTRIDGE SQ SCH (21:03)
[2017-02-14] MEDS: ACETAMINOPHEN 325 MG TABLET PO PRN (23:03)
[2017-02-15] MEDS: LACTULOSE 20 G/30 ML LIQUID UDC PO SCH ×2 (06:00→13:34)
[2017-02-15 06:15] VITALS: BP 134/42
[2017-02-15] MEDS: PANTOPRAZOLE SODIUM 40 MG TABLET.DR PO SCH (06:39)
[2017-02-15] MEDS: BLOOD SUGAR DIAGNOSTIC 1 EACH STRIP VI SCH ×2 (06:40→11:43)
--- NOTE | 2017-02-15 07:13 | NUR ---
Pt slept throughout the night. No apparent distress noted. Vital signs WNL. Temperature 97.3, afebrile. Continuing 2LPM O2, saturation 96%. Safety measures and fall precautions maintained. Call light within reach. Bed lowest position, locked with side rails x 2.
[2017-02-15] MEDS: FERROUS SULFATE 325 MG TABEC PO SCH (08:06)
[2017-02-15] MEDS: QUETIAPINE FUMARATE 25 MG TABLET PO SCH ×3 (08:06→16:13)
[2017-02-15] MEDS: FUROSEMIDE 20 MG TABLET PO SCH (08:06)
[2017-02-15] MEDS: CHOLECALCIFEROL 1,000 UNIT TABLET PO SCH (08:06)
[2017-02-15] MEDS: MULTIVIT, IRON, MIN NO. 8, FA TABLET PO SCH (08:06)
[2017-02-15] MEDS: SPIRONOLACTONE 25 MG TABLET PO SCH (08:07)
[2017-02-15] MEDS: CALCIUM CARB/VITAMIN D 600-400 MG TABLET PO SCH (08:07)
[2017-02-15] MEDS: HYDROCODONE/APAP 10-325 MG TABLET PO PRN ×2 (08:07→13:28)
[2017-02-15] MEDS: Z GUARD REMEDY PASTE 57 GM TUBE TOP SCH (08:13)
[2017-02-15 11:39] LABS: BASOPHILS % (AUTO) 0.3 % (0.0-2.0); EOSINOPHILS # (AUTO) 0.1 K/uL (0.0-0.7); HEMATOCRIT 27.1 % (37-47); HEMOGLOBIN 8.7 G/DL (12.0-16.0); LYMPHOCYTES # (AUTO) 0.6 K/UL (0.8-4.8); LYMPHOCYTES % (AUTO) 22.7 % (20.5-51.5); MEAN CORPUSCULAR HEMOGLOBIN 28.8 UUG (27.0-31.0); MEAN CORPUSCULAR HGB CONC 32 g/dL (32.0-37.0); MEAN CORPUSCULAR VOLUME 90.1 FL (81.0-99.0); MONOCYTES # (AUTO) 0.3 K/UL (0.1-1.30); MONOCYTES % (AUTO) 9.9 % (0.0-11.0); NEUTROPHILS # (AUTO) 1.8 K/UL (1.8-8.9); NEUTROPHILS % (AUTO) 64.1 % (38.5-71.5); RED BLOOD CELL COUNT(AUTO) 3.01 MIL/UL (4.2-5.4); WHITE BLOOD COUNT (AUTO) 2.8 K/UL (4.0-11.2)
[2017-02-15] MEDS: INSULIN REGULAR, HUMAN 300 UNIT/3 ML VIAL SQ PRN (11:41)
[2017-02-15 11:44] LABS: PLATELET COUNT (AUTO) 54 K/UL (150-450)
[2017-02-15 11:46] VITALS: BP 130/59
[2017-02-15 11:49] LABS: CARBON DIOXIDE 33 mmol/L (21-32); CHLORIDE 107 mmol/L (98-107); CREATININE 0.7 mg/dL (0.6-1.3); GLUCOSE 136 mg/dL (74-106); POTASSIUM 4.5 mmol/L (3.5-5.1); UREA NITROGEN, BLOOD 26 mg/dL (7-18)
--- NOTE | 2017-02-15 11:53 | NUR ---
ALERT BUT FORGETFUL TOTALLY DEPENDENT FOR ALL ADL ASSISTED NEEDED.
[2017-02-15 12:22] LABS: BASOPHILS % (MANUAL) 1 % (0-2); EOSINOPHILS % (MANUAL) 2 % (0-8); LYMPHOCYTES % (MANUAL) 24 % (20-40); MONOCYTES % (MANUAL) 9 % (2-10); NEUTROPHILS % (MANUAL) 64 % (42-75)
[2017-02-15] MEDS ORDERED: ACET325T53 PO (12:50)
[2017-02-15] MEDS ORDERED: Magnesium Oxide PO (12:50)
[2017-02-15] MEDS ORDERED: LEVO500T2 PO (12:50)
--- NOTE | 2017-02-15 15:00 | NUR ---
CALLED [facility] AND THE AMBULANCE WILL BE HERE TO FILLING MACHINE TENDER THE PATIENT AT [id number]
--- NOTE | 2017-02-15 15:51 | NUR ---
CALLED [facility] AND GAVE REPORT TO OLGA FOR CONTINUING CARE
[2017-02-15 16:00] VITALS: BP 126/57
--- NOTE | 2017-02-15 17:00 | NUR ---
PATIENT DISCHARGED PICKED UP BY [facility] IN SATISFACTORY CONDITION WITH DISCHARGE INSTRUCTIONS FOR CONTINUING CARE PATIENTS SON IS AT HER BEDSIDE AT THIS TIME.
== END 2017-02-15 16:56 | DRG 720 ==
LOC: ER 15:30 → TELE 17:29 → MED 02-13 23:03
PROVIDERS: ADMIT Internal Medicine; ATTEND Internal Medicine
DX: A41.9 Sepsis, unspecified organism (principal); E43 Unspecified severe protein-calorie malnutrition; G93.41 Metabolic encephalopathy; D61.818 Other pancytopenia; I11.0 Hypertensive heart disease with heart failure; C79.9 Secondary malignant neoplasm of unspecified site; C22.0 Liver cell carcinoma; D68.59 Other primary thrombophilia; I50.32 Chronic diastolic (congestive) heart failure; E11.65 Type 2 diabetes mellitus with hyperglycemia; K59.09 Other constipation; N39.0 Urinary tract infection, site not specified; R65.20 Severe sepsis without septic shock; Z79.899 Other long term (current) drug therapy; Z92.21 Personal history of antineoplastic chemotherapy; Z87.891 Personal history of nicotine dependence; K74.60 Unspecified cirrhosis of liver; E78.5 Hyperlipidemia, unspecified; Z74.09 Other reduced mobility; F32.9 Major depressive disorder, single episode, unspecified; J44.9 Chronic obstructive pulmonary disease, unspecified; G89.4 Chronic pain syndrome; E66.9 Obesity, unspecified; Z68.30 Body mass index [BMI] 30.0-30.9, adult; M81.0 Age-related osteoporosis without current pathological fracture; Z79.4 Long term (current) use of insulin
CPT/HCPCS: 36415; 70030-TC; 71010; 83550; 83605; 83735; 84100; 85025; 85730; 87040; 87086; 93005; A4663; J0696; J1815; J1956; J2185; J2358; J3475; J3490; J7030; J7040; J7060

== ENCOUNTER 2018-05-07 19:27 | Inpatient (IN) | payer MEDICAID, MEDICARE ==
[~2018-05-07] VITALS: Ht 162.6 cm; Wt 72.6 kg
[~2018-05-07 19:27] MED LIST changes: +ACET325T53 PO; -FERR-58 PO; +FERR325T24 PO; -HYDR-3326 PO; +LEVO500T2 PO; -MAGN200T5 PO; +MAGN400O6 PO; +Magnesium Oxide PO; -SPIR25TA4 PO; +SPIR25TA6 PO
--- NOTE | 2018-05-07 19:35 | NUR ---
PT A/OX1, BIB PRIVATE AMBULANCE ([facility]) FROM [facility]. PER FINE ARTIST, PT HAS BEEN PRESENTING W/ GENERALIZED WEAKNESS. PT IS NON-AMBULATORY. PT UNABLE TO PROVIDE PMHX. VS WNL. ER MD AT BEDSIDE FOR MSE.
[2018-05-07] MEDS ORDERED: IV NORMAL SALINE 500 ML BAG IV ONE (19:45)
--- NOTE | 2018-05-07 19:58 | NUR ---
CHEMICAL LABORATORY CHIEF AND AIR BRUSH DECORATOR AT BEDSIDE.
[2018-05-07 20:21] LABS: BASOPHILS % (AUTO) 0.4 % (0.0-2.0); EOSINOPHILS % (AUTO) 1.1 % (0.0-7.0); HEMATOCRIT 31.6 % (31.2-41.9); HEMOGLOBIN 10.8 g/dL (10.9-14.3); LYMPHOCYTES # (AUTO) 0.4 K/uL (20.0-40.0); LYMPHOCYTES % (AUTO) 11.4 % (20.5-51.5); MEAN CORPUSCULAR HEMOGLOBIN 29.6 uug (24.7-32.8); MEAN CORPUSCULAR HGB CONC 34 g/dL (32.3-35.6); MONOCYTES # (AUTO) 0.2 K/uL (2.0-10.0); NEUTROPHILS # (AUTO) 2.7 K/uL (1.8-8.9); NEUTROPHILS % (AUTO) 81.1 % (38.5-71.5); PLATELET COUNT (AUTO) 52 K/uL (179-408); RED BLOOD CELL COUNT(AUTO) 3.63 MIL/uL (3.63-4.92); WHITE BLOOD COUNT (AUTO) 3.3 K/uL (3.8-11.8)
[2018-05-07 20:22] LABS: CARBON DIOXIDE 31 mmol/L (21-32); CHLORIDE 108 mmol/L (98-107); CREATININE 0.9 mg/dL (0.6-1.3); GLUCOSE 273 mg/dL (74-106); POTASSIUM 4.7 mmol/L (3.5-5.1); UREA NITROGEN, BLOOD 25 mg/dL (7-18)
[2018-05-07 20:27] LABS: ALANINE AMINOTRANSFERASE 58 U/L (14-59); ALKALINE PHOSPHATASE 74 U/L (50-136); ASPARTATE AMINOTRANSFERASE 47 U/L (15-37); BILIRUBIN,DIRECT 0.4 mg/dL (0.0-0.2); LIPASE 277 U/L (73-393); TOTAL PROTEIN, SERUM 7.3 g/dL (6.4-8.2)
[2018-05-07 20:36] LABS: *BILIRUBIN,URIN NEGATIVE (NEGATIVE); *BLOOD, URINE Trace-intact (NEGATIVE); *CLARITY,URINE CLEAR (CLEAR); *COLOR,URINE YELLOW (YELLOW); *KETONES,URINE NEGATIVE (NEGATIVE); *PROTEIN,URINE 2+ (NEGATIVE); *UROBILINOGEN,URINE 0.2 E.U./dl (NORMAL); LEUKOCYTE ESTERASE ,URINE NEGATIVE (NEGATIVE); NITRITE, URINE NEGATIVE (NEGATIVE); UGLUCOSE TRACE (NEGATIVE)
[2018-05-07] MEDS ORDERED: ONDA8TAB6 PO (20:41)
[2018-05-07] MEDS ORDERED: IPRA0.2S6 NEB (20:41)
[2018-05-07] MEDS ORDERED: ALBU2.5V38 IH (20:41)
[2018-05-07] MEDS ORDERED: SPIR25TA PO (20:41)
[2018-05-07] MEDS ORDERED: ACET325T53 PO (20:41)
[2018-05-07] MEDS ORDERED: INSU100V10 SQ (20:41)
[2018-05-07] MEDS ORDERED: PROHEAL PO (20:41)
[2018-05-07] MEDS ORDERED: SORA200T2 PO (20:41)
[2018-05-07] MEDS ORDERED: HYDR-4384 PO ×2 (20:41)
[2018-05-07] MEDS ORDERED: FURO-152 PO (20:41)
[2018-05-07] MEDS ORDERED: OMEP1PAC7 PO (20:41)
[2018-05-07] MEDS ORDERED: ESCI5TAB PO (20:41)
[2018-05-07 20:48] LABS: MUCUS,URINE FEW /LPF (0-FEW); SQUAMOUS EPITHELIAL CELL,UR FEW /HPF (NONE SEEN); WBC,URINE 0-3 /HPF (0-3)
[2018-05-07 21:00] LABS: BAND % (MANUAL) 5 % (0-10); EOSINOPHILS % (MANUAL) 1 % (0-8); LYMPHOCYTES % (MANUAL) 9 % (20-40); MONOCYTES % (MANUAL) 5 % (2-10); NEUTROPHILS % (MANUAL) 80 % (42-75)
[2018-05-07] MEDS ORDERED: FUROSEMIDE 20 MG/2 ML VIAL IV ONE (21:00)
--- NOTE | 2018-05-07 21:00 | NUR ---
PAGED EPIC FOR PANEL CALL - AWAITING CALL-BACK FROM RENE DURAN NP.
[2018-05-07] MEDS ORDERED: FUROSEMIDE 40 MG/4 ML VIAL ONE (21:04)
--- NOTE | 2018-05-07 21:15 | NUR ---
ER SPEAKING W/ RENE PAINTER, [employer] NET DEVELOPER, RE PT'S ADMISSION.
--- NOTE | 2018-05-07 21:35 | NUR ---
GAVE ADMITTING REPORT TO MARKELL SALAZAR.
[2018-05-07] MEDS ORDERED: ONDANSETRON 4 MG/2 ML VIAL IV PRN (21:45)
[2018-05-07] MEDS ORDERED: MAGNESIUM HYDROXIDE 30 ML LIQUID UDC PO PRN (21:45)
--- NOTE | 2018-05-07 21:59 | NUR ---
Pt. admitted to TELE 205, under care of RENE DURAN NP. Belongs List completed.
[2018-05-07 22:30] VITALS: BP 106/82
--- NOTE | 2018-05-07 22:39 | NUR ---
Received patient to TELE floor. Patient is alert and oriented to self only. Able to obey commands. No open skin issues noted. Only redness noted to the perianal area. Ware catheter intact. M[employer]ER [employer] En here to assess patient. Currently on 4LNC. Belongings list done. Oriented to unit and use of call light. Bed alarm on with bed locked and in low position.
[2018-05-07] MEDS ORDERED: IPRATROPIUM BROMIDE 0.5 MG/2.5 ML NEBU NEB PRN (23:30)
[2018-05-07] MEDS ORDERED: DEXTROSE 50% 50 ML DISP.SYRIN IV PRN (23:30)
[2018-05-07] MEDS ORDERED: ALBUTEROL SULFATE 2.5 MG/3 ML NEBU NEB PRN (23:30)
[2018-05-07] MEDS ORDERED: FLEET ENEMA 133 ML BOTTLE RC PRN (23:30)
[2018-05-07] MEDS ORDERED: BISACODYL 10 MG SUPP.RECT RC PRN (23:30)
[2018-05-08] VITALS: BP 133/68
[2018-05-08] MEDS: HYDROCODONE/APAP 5-325MG TABLET PO PRN ×2 (01:09→09:01)
[2018-05-08 05:00] VITALS: BP 138/69
[2018-05-08] MEDS: PANTOPRAZOLE SODIUM 40 MG TABLET.DR PO SCH (06:23)
[2018-05-08] MEDS: BLOOD SUGAR DIAGNOSTIC 1 EACH STRIP VI SCH ×4 (06:23→20:26)
[2018-05-08 07:08] LABS: BASOPHILS % (AUTO) 0.4 % (0.0-2.0); EOSINOPHILS # (AUTO) 0.1 K/uL (0.0-0.7); EOSINOPHILS % (AUTO) 2.3 % (0.0-7.0); HEMATOCRIT 30.9 % (31.2-41.9); HEMOGLOBIN 10.5 g/dL (10.9-14.3); LYMPHOCYTES # (AUTO) 0.4 K/uL (20.0-40.0); LYMPHOCYTES % (AUTO) 12.3 % (20.5-51.5); MEAN CORPUSCULAR HEMOGLOBIN 30.2 uug (24.7-32.8); MEAN CORPUSCULAR HGB CONC 34 g/dL (32.3-35.6); MEAN CORPUSCULAR VOLUME 88.9 fL (75.5-95.3); MONOCYTES # (AUTO) 0.2 K/uL (2.0-10.0); MONOCYTES % (AUTO) 5.3 % (0.0-11.0); NEUTROPHILS # (AUTO) 2.4 K/uL (1.8-8.9); NEUTROPHILS % (AUTO) 79.7 % (38.5-71.5); PLATELET COUNT (AUTO) 51 K/uL (179-408); RED BLOOD CELL COUNT(AUTO) 3.47 MIL/uL (3.63-4.92)
[2018-05-08 07:26] LABS: THYROID STIMULATING HORMONE 1.551 mIU/mL (0.358-3.740)
[2018-05-08 07:27] LABS: CARBON DIOXIDE 34 mmol/L (21-32); CHLORIDE 107 mmol/L (98-107); CHOLESTEROL 61 mg/dL (<200); CREATININE 0.9 mg/dL (0.6-1.3); GLUCOSE 217 mg/dL (74-106); HDL CHOLESTEROL 33 mg/dL (40-60); MAGNESIUM 2.3 mg/dL (1.8-2.4); PHOSPHOROUS 3.6 mg/dL (2.5-4.9); POTASSIUM 4.6 mmol/L (3.5-5.1); TRIGLYCERIDES 32 MG/DL (30-150); UREA NITROGEN, BLOOD 26 mg/dL (7-18)
--- NOTE | 2018-05-08 08:00 | NUR ---
RECEIVED PATIENT IN BED AWAKE CONFUSED AND DISORIENTED CALLING OUT FOR HELP BUT UNABLE TO RELAY WHAT SHE WANTS BUT DID STATED THAT SHE WAS HUNGRY REPOSITIONED HER AND PROMISED HER THAT THE BREAKFAST TRAYS WILL BE HERE SOON.REMAINS ON O2 WITH NO SHORTNESS OF BREATH AT THIS TIME PATIENT HAS THE TENDENCY TO REMOVE THE O2 CANULA REAPPLIED SO MANY TIMES.
[2018-05-08] MEDS: INSULIN REGULAR, HUMAN 300 UNIT/3 ML VIAL SQ PRN ×4 (08:12→20:29)
[2018-05-08] MEDS: FUROSEMIDE 20 MG TABLET PO SCH (08:20)
[2018-05-08] MEDS: ESCITALOPRAM OXALATE 10 MG TABLET PO SCH (08:20)
[2018-05-08] MEDS: CHOLECALCIFEROL 1,000 UNIT TABLET PO SCH (08:20)
[2018-05-08] MEDS: CALCIUM CARB/VITAMIN D 600-400 MG TABLET PO SCH ×2 (08:20→20:20)
[2018-05-08] MEDS: SPIRONOLACTONE 25 MG TABLET PO SCH (08:21)
[2018-05-08] MEDS ORDERED: ESCITALOPRAM OXALATE 2.5 MG PO SCH (09:00)
--- NOTE | 2018-05-08 09:00 | NUR ---
WHILE PATIENT IS EATING HER BREAKFAST CONTINUES TO CALL OUT FOR HELP STILL UNABLE TO RELATE NEEDS BUT DIS SAY THAT SHE WAS IN PAIN SO PATIENT MEDICATED WITH NORCO ORDERED MADE COMFORTABLE AND WILL CONTINUE TO OBSERVE AND PROVIDE SAFE AND THERAPEUTIC ENVIRONMENT AT ALL TIMES.
[2018-05-08] MEDS: Z GUARD REMEDY PASTE 57 GM TUBE TOP PRN (09:01)
[2018-05-08 09:47] LABS: BAND % (MANUAL) 2 % (0-10); EOSINOPHILS % (MANUAL) 2 % (0-8); LYMPHOCYTES % (MANUAL) 13 % (20-40); MONOCYTES % (MANUAL) 4 % (2-10); NEUTROPHILS % (MANUAL) 79 % (42-75)
--- NOTE | 2018-05-08 11:15 | NUR ---
RENE BLACK PULLER HERE AND NOTIFIED HIM THAT PATIENT IS VERY RESTLESS AND AGITATED AND A RESULT THE CT OF THE HEAD COULD NOT BE DONE STATED OKAY WILL SEE PATIENT AND WILL ORDER SOME MEDICATIONS TO RELAX HER.
[2018-05-08 11:44] VITALS: BP 152/65
[2018-05-08] MEDS: LORAZEPAM 2 MG/1 ML VIAL IV PRN ×2 (11:56→21:28)
--- NOTE | 2018-05-08 12:27 | NUR ---
PATIENT IS FINALLY CALM AFTER THE ATIVAN ADMINISTRATION ORDERED CALLED THE RADIOLOGY DEPT SPOKE WITH SHAHEED STATED WILL INFORM THE TECH.
--- NOTE | 2018-05-08 13:45 | NUR ---
NOTIFIED THE TECH AGAIN THAT THE PATIENT IS READY FOR THE CT HEAD ORDERED STATED OKAY BUSY NOW BUT WILL SOON POSSIBLE.
--- NOTE | 2018-05-08 13:56 | NUR ---
PATIENT SEEN AND EXAMINED BY GABRIELLA BOSS NEUROLOGY HOSTEL PARENT WITH NEW ORDERS AND NOTED.
[2018-05-08 15:51] VITALS: BP 151/86
--- NOTE | 2018-05-08 17:00 | NUR ---
PATIENT IS MUCH CALMER HER SON IS AT THE BEDSIDE AND ASSISTING WITH DINNER REMOVES HER O2 CANULA SO MANY TIMES REAPPLIED HER SATS GOES DOWN WITHOUT THE O2 ALL NEEDS ANTICIPATED AND SATISFIED NOT IN DISTRESS AT THIS TIME
[2018-05-08 17:35] LABS: *AMPHETAMINE, URINE NEGATIVE (NEGATIVE); *BARBITURATE, URINE NEGATIVE (NEGATIVE); *CANNABINOID, URINE NEGATIVE (NEGATIVE); *COCCAINE, URINE NEGATIVE (NEGATIVE); *OPIATE, URINE POSITIVE (NEGATIVE); *PHENCYCLIDINE SCREEN,URINE NEGATIVE (NEGATIVE)
[2018-05-08 20:00] VITALS: BP 152/72
[2018-05-08] MEDS: INSULIN GLARGINE,HUM 300 UNITS/3 ML CARTRIDGE SQ SCH (20:30)
[2018-05-09 06:18] VITALS: BP 134/64
[2018-05-09] MEDS: PANTOPRAZOLE SODIUM 40 MG TABLET.DR PO SCH (06:23)
[2018-05-09] MEDS: BLOOD SUGAR DIAGNOSTIC 1 EACH STRIP VI SCH ×4 (06:23→21:42)
[2018-05-09 07:15] LABS: ALANINE AMINOTRANSFERASE 55 U/L (14-59); ALKALINE PHOSPHATASE 64 U/L (50-136); ASPARTATE AMINOTRANSFERASE 49 U/L (15-37); BILIRUBIN,TOTAL 0.9 mg/dL (0.2-1.0); CARBON DIOXIDE 34 mmol/L (21-32); CHLORIDE 105 mmol/L (98-107); CREATININE 0.9 mg/dL (0.6-1.3); GLUCOSE 169 mg/dL (74-106); POTASSIUM 5.2 mmol/L (3.5-5.1); TOTAL PROTEIN, SERUM 7.2 g/dL (6.4-8.2); UREA NITROGEN, BLOOD 25 mg/dL (7-18)
--- NOTE | 2018-05-09 07:30 | NUR ---
RECEIVED PATIENT ASLEEP WITH HER EYES CLOSED BUT OPENS EYES WHEN NAME IS CALLED REMAINS CONFUSED AND DISORIENTED ALL NEEDS ANTICIPATED AND SATISFIED.MAX ASSIST FOR ALL ADL REMAIN ON O2 AT THIS TIME WITH NO SHORTNESS OF BREATH NOTED MADE COMFORTABLE AND WILL CONTINUE TO OBSERVE.
[2018-05-09] MEDS: INSULIN REGULAR, HUMAN 300 UNIT/3 ML VIAL SQ PRN ×4 (07:55→21:43)
[2018-05-09] MEDS: ESCITALOPRAM OXALATE 10 MG TABLET PO SCH (09:31)
[2018-05-09] MEDS: FUROSEMIDE 20 MG TABLET PO SCH (09:31)
[2018-05-09] MEDS: SPIRONOLACTONE 25 MG TABLET PO SCH (09:31)
[2018-05-09] MEDS: CHOLECALCIFEROL 1,000 UNIT TABLET PO SCH (09:32)
[2018-05-09] MEDS: Z GUARD REMEDY PASTE 57 GM TUBE TOP PRN (09:40)
[2018-05-09] MEDS: CALCIUM CARB/VITAMIN D 600-400 MG TABLET PO SCH ×2 (09:45→21:38)
[2018-05-09 11:48] VITALS: BP 156/69
[2018-05-09] MEDS: LORAZEPAM 2 MG/1 ML VIAL IV PRN (12:36)
--- NOTE | 2018-05-09 12:36 | NUR ---
AGITATED CALLING OUT HELP HELP MAMA MAMA UNABLE TO REDIRECT MEDICATED WITH ATIVAN ORDERED AND WILL OBSERVE.
--- NOTE | 2018-05-09 13:30 | NUR ---
AMMONIA LEVEL IS 72 PATIENT SEEN BY RACHEL FIELD SAMPLING TECHNICIAN WITH NEW ORDERS AND NOTED.
[2018-05-09] MEDS ORDERED: INSULIN REGULAR, HUMAN 300 UNIT/3 ML VIAL SQ ONE (14:45)
[2018-05-09] MEDS ORDERED: DEXTROSE 50% 50 ML DISP.SYRIN IV ONE (14:45)
[2018-05-09 15:23] VITALS: BP 150/78
[2018-05-09] MEDS: LACTULOSE 20 G/30 ML LIQUID UDC PO SCH (16:14)
--- NOTE | 2018-05-09 17:53 | NUR ---
ASSISTED WITH DINNER SPOON FED WITH FAIR TO GOOD APPETITE NO S/S OF HYPO/HYPERGLYCEMIC REACTIONS IV SITE CHANGED TO HER RIGHT HAND FLUSHED PER PROTOCOL WILL CONTINUE TO OBSERVE.
[2018-05-09 19:00] VITALS: BP 157/79
--- NOTE | 2018-05-09 19:30 | NUR ---
Received in bed, awake, In no acute sign of distress. On fall risk, bed alarm on. Safety measures observed.
[2018-05-09] MEDS: INSULIN GLARGINE,HUM 300 UNITS/3 ML CARTRIDGE SQ SCH (21:41)
[2018-05-10 04:00] VITALS: BP 140/71
[2018-05-10] MEDS: PANTOPRAZOLE SODIUM 40 MG TABLET.DR PO SCH (06:30)
[2018-05-10] MEDS: BLOOD SUGAR DIAGNOSTIC 1 EACH STRIP VI SCH ×4 (06:36→20:49)
[2018-05-10 06:51] LABS: BASOPHILS % (AUTO) 0.3 % (0.0-2.0); EOSINOPHILS # (AUTO) 0.1 K/uL (0.0-0.7); EOSINOPHILS % (AUTO) 2.2 % (0.0-7.0); HEMOGLOBIN 11.2 g/dL (10.9-14.3); LYMPHOCYTES # (AUTO) 0.5 K/uL (20.0-40.0); LYMPHOCYTES % (AUTO) 13.1 % (20.5-51.5); MEAN CORPUSCULAR HEMOGLOBIN 29.3 uug (24.7-32.8); MEAN CORPUSCULAR HGB CONC 34 g/dL (32.3-35.6); MEAN CORPUSCULAR VOLUME 86.4 fL (75.5-95.3); MONOCYTES # (AUTO) 0.2 K/uL (2.0-10.0); MONOCYTES % (AUTO) 6.4 % (0.0-11.0); PLATELET COUNT (AUTO) 57 K/uL (179-408); RED BLOOD CELL COUNT(AUTO) 3.82 MIL/uL (3.63-4.92); WHITE BLOOD COUNT (AUTO) 3.9 K/uL (3.8-11.8)
[2018-05-10 07:04] LABS: CARBON DIOXIDE 31 mmol/L (21-32); CHLORIDE 105 mmol/L (98-107); CREATININE 0.9 mg/dL (0.6-1.3); GLUCOSE 157 mg/dL (74-106); PHOSPHOROUS 3.5 mg/dL (2.5-4.9); POTASSIUM 4.8 mmol/L (3.5-5.1); UREA NITROGEN, BLOOD 22 mg/dL (7-18)
--- NOTE | 2018-05-10 07:10 | NUR ---
Pt in bed, asleep, but arousable to touch/ name. In no acute sign of distress. No c/o pain at this time. BS checked, endorsed to am nurse. Safety measures maintained.
[2018-05-10 07:48] LABS: EOSINOPHILS % (MANUAL) 4 % (0-8); MONOCYTES % (MANUAL) 6 % (2-10); NEUTROPHILS % (MANUAL) 80 % (42-75)
[2018-05-10 07:49] LABS: LYMPHOCYTES % (MANUAL) 10 % (20-40)
--- NOTE | 2018-05-10 08:00 | NUR ---
AWAKE FORGETFUL CONFUSED NO SOB OR PAIN RESTING WELL WITH CALL LIGHT IN REACH AND BED ALARM ON CONTINUE O2 AT 2L O2 SAT WNL HL INPLACE RT WRIST #20
[2018-05-10] MEDS: LACTULOSE 20 G/30 ML LIQUID UDC PO SCH ×3 (08:51→16:15)
[2018-05-10] MEDS: SPIRONOLACTONE 25 MG TABLET PO SCH (08:52)
[2018-05-10] MEDS: FUROSEMIDE 20 MG TABLET PO SCH (08:52)
[2018-05-10] MEDS: CALCIUM CARB/VITAMIN D 600-400 MG TABLET PO SCH ×2 (08:52→20:38)
[2018-05-10] MEDS: ACETAMINOPHEN 325 MG TABLET PO PRN ×2 (08:52→09:55)
[2018-05-10] MEDS: ESCITALOPRAM OXALATE 10 MG TABLET PO SCH (08:52)
[2018-05-10] MEDS: CHOLECALCIFEROL 1,000 UNIT TABLET PO SCH (08:52)
[2018-05-10] MEDS: Z GUARD REMEDY PASTE 57 GM TUBE TOP PRN ×2 (08:53→21:01)
[2018-05-10] MEDS: INSULIN REGULAR, HUMAN 300 UNIT/3 ML VIAL SQ PRN ×4 (08:57→20:52)
[2018-05-10 11:16] VITALS: BP 142/70
[2018-05-10] MEDS ORDERED: MISCELLANEOUS MED XX PRN (13:15)
[2018-05-10] MEDS ORDERED: IRR STERIL WATER FOR IRR 700 ML, LACTULOSE 200 G PR ONE ×2 (13:30)
[2018-05-10] MEDS: LORAZEPAM 2 MG/1 ML VIAL IV PRN (13:54)
--- NOTE | 2018-05-10 14:00 | NUR ---
FAMILY SON AT BEDSIDE QUIET AT THIS TIME
[2018-05-10 15:19] VITALS: BP 141/60
--- NOTE | 2018-05-10 16:00 | NUR ---
CEPHALAC IRRIGATION ENEMA GIVEN ORDER
[2018-05-10] MEDS: HYDROCODONE/APAP 5-325MG TABLET PO PRN (16:15)
--- NOTE | 2018-05-10 17:00 | NUR ---
HAVING LIQ BM MOD AMT AFTER CEPHALUC ENEMA GIVEN DIAPER CHANGE AND REPOSITION
--- NOTE | 2018-05-10 17:30 | NUR ---
RESTING IN BED NO ACUTE DISTRESS CONTINUE O2 AT 2L O2 SAT WNL SAFETY MEASURE PROVIDED CALL LIGHT IN REACH AND BED ALARM ON F/C INTACT URINE FLOW WELL
--- NOTE | 2018-05-10 19:20 | NUR ---
RECEIVED PT AWAKE, ALERT AND ORIENTEDX2. PT SHOWS NO SIGNS OF DISTRESS. IV INTACT AND PATENT. CHANG CATHETER INTACT AND DWELLING WELL. PT ON 2L OXYGEN VIA NASAL CANULA. SAFETY AND COMFORT PROVIDED. WILL CONTINUE TO MONITOR.
[2018-05-10 20:00] VITALS: BP 150/68
[2018-05-10] MEDS: INSULIN GLARGINE,HUM 300 UNITS/3 ML CARTRIDGE SQ SCH (20:51)
[2018-05-11] VITALS (7 sets, daily range): BP systolic 118–146; BP diastolic 56–71
[2018-05-11] MEDS: HYDROCODONE/APAP 5-325MG TABLET PO PRN ×2 (03:58→09:08)
--- NOTE | 2018-05-11 04:00 | NUR ---
GAVE NORCO PRIOR TO ADMINISTRATION BP 114/63, RR18 , HR 73. PT SAYING SHE'S IN PAIN. WILL CONTINUE TO MONITOR.
[2018-05-11] MEDS: PANTOPRAZOLE SODIUM 40 MG TABLET.DR PO SCH (06:10)
--- NOTE | 2018-05-11 06:17 | NUR ---
PT SLEPT THROUGHOUT THE SHIFT. PT SHOWS NO SIGNS OF DISTRESS. IV INTACT AND PATENT. CHANG INTACT. PRESCRIBED MEDICATION GIVEN AND PT TOLERATED IT WELL. ONE BOWEL MOVEMENT ON MY SHIFT.PT TURNED AND REPOSITIONED.NORCO PRN WAS GIVEN PRESCRIBED BY THE DOCTOR FOR PAIN AND PT TOLERATED IT WELL. SAFETY AND COMFORT PROVIDED. WILL ENDORSE TO DAYSHIFT FOR CONTINUITY OF CARE.
[2018-05-11 06:41] LABS: BASOPHILS % (AUTO) 0.2 % (0.0-2.0); EOSINOPHILS # (AUTO) 0.1 K/uL (0.0-0.7); EOSINOPHILS % (AUTO) 2.9 % (0.0-7.0); HEMATOCRIT 31.8 % (31.2-41.9); HEMOGLOBIN 10.8 g/dL (10.9-14.3); LYMPHOCYTES # (AUTO) 0.5 K/uL (20.0-40.0); LYMPHOCYTES % (AUTO) 11.9 % (20.5-51.5); MEAN CORPUSCULAR HEMOGLOBIN 30.3 uug (24.7-32.8); MEAN CORPUSCULAR HGB CONC 34 g/dL (32.3-35.6); MEAN CORPUSCULAR VOLUME 89.1 fL (75.5-95.3); MONOCYTES # (AUTO) 0.2 K/uL (2.0-10.0); MONOCYTES % (AUTO) 5.7 % (0.0-11.0); NEUTROPHILS # (AUTO) 3.2 K/uL (1.8-8.9); NEUTROPHILS % (AUTO) 79.3 % (38.5-71.5); PLATELET COUNT (AUTO) 57 K/uL (179-408); RED BLOOD CELL COUNT(AUTO) 3.57 MIL/uL (3.63-4.92)
[2018-05-11] MEDS: BLOOD SUGAR DIAGNOSTIC 1 EACH STRIP VI SCH ×4 (06:41→20:48)
[2018-05-11 06:44] LABS: CARBON DIOXIDE 31 mmol/L (21-32); CHLORIDE 102 mmol/L (98-107); CREATININE 0.8 mg/dL (0.6-1.3); GLUCOSE 153 mg/dL (74-106); PHOSPHOROUS 3.3 mg/dL (2.5-4.9); POTASSIUM 5.1 mmol/L (3.5-5.1); UREA NITROGEN, BLOOD 20 mg/dL (7-18)
[2018-05-11] MEDS ORDERED: MISCELLANEOUS MED XX PRN ×2 (07:15→21:00)
[2018-05-11 07:27] LABS: EOSINOPHILS % (MANUAL) 1 % (0-8); LYMPHOCYTES % (MANUAL) 7 % (20-40); MONOCYTES % (MANUAL) 7 % (2-10); NEUTROPHILS % (MANUAL) 85 % (42-75)
[2018-05-11] MEDS: LACTULOSE 20 G/30 ML LIQUID UDC PO SCH ×3 (08:48→17:09)
[2018-05-11] MEDS: CHOLECALCIFEROL 1,000 UNIT TABLET PO SCH (08:49)
[2018-05-11] MEDS: SPIRONOLACTONE 25 MG TABLET PO SCH (08:49)
[2018-05-11] MEDS: ESCITALOPRAM OXALATE 10 MG TABLET PO SCH (08:49)
[2018-05-11] MEDS: CALCIUM CARB/VITAMIN D 600-400 MG TABLET PO SCH ×2 (08:49→20:44)
[2018-05-11] MEDS: FUROSEMIDE 20 MG TABLET PO SCH (08:49)
[2018-05-11] MEDS ORDERED: LACTULOSE PR ONE ×2 (09:00)
[2018-05-11] MEDS ORDERED: SODIUM CHLORIDE PR ONE ×2 (09:00)
[2018-05-11] MEDS: LORAZEPAM 2 MG/1 ML VIAL IV PRN ×2 (09:59→21:04)
[2018-05-11] MEDS: INSULIN REGULAR, HUMAN 300 UNIT/3 ML VIAL SQ PRN ×3 (14:06→20:52)
--- NOTE | 2018-05-11 14:06 | NUR ---
PATIENT NOT COVERED WITH SLIDING SCALE THIS AFTERNOON AFTER LUNCH NOTED WITH POOR PO INTAKE CONTINUE TO MONITOR
--- NOTE | 2018-05-11 15:57 | NUR ---
PATIENT RECVD LACTULOSE ENEMA THIS AFTERNOON TOLERATED WELL, HAD LARGE BOWEL MOVEMENT AND ANOTHER MEDIUM SIZE AT THIS TIME, TOLERATED WELL CONTINUE TO MONITOR FREQUENT CHECKS AND PERICARE.
--- NOTE | 2018-05-11 17:54 | NUR ---
REPEAT AMMONIA LEVEL ORDERED PER THELMA [email or web address]. THIS AFTERNOON, PRIOR LEVEL CHECKED BEFORE PATIENT HAD BOWEL MOVEMENT , LEVEL WAS 97. NEW LEVEL FOR AMMONIA 66, POST BOWEL MOVEMENT. MOBILE DEVICE ENGINEER NOTIFIED, NO NEW ORDERS AT THIS TIME, MOBILE DEVICE ENGINEER WILL ORDER OWN LABS AND MEDS. PATIENT REMAINS CONFUSED AND DISORIENTED YELLING OUT FOR "MOMMA". FREQUENT REDIRECTION NEEDED.
--- NOTE | 2018-05-11 19:30 | NUR ---
Received patient in bed. Alert and verbally responsive. Able to make needs known. Denies any pain and discomfort at this time. No acute distress. No SOB. On O2 at 2LPM. Kept clean and dry. IV site on left arm. Patent and intact. Ware catheter intact. Draining eliane yellow urine. All needs attended to promptly. Call light within reach. Will continue to monitor.
[2018-05-11] MEDS: INSULIN GLARGINE,HUM 300 UNITS/3 ML CARTRIDGE SQ SCH (20:53)
[2018-05-11] MEDS ORDERED: IRR STERIL WATER FOR IRR 700 ML, LACTULOSE 200 G PR ONE ×2 (21:00)
[2018-05-12] MEDS: HYDROCODONE/APAP 5-325MG TABLET PO PRN (03:04)
[2018-05-12 04:00] VITALS: BP 124/65
[2018-05-12] MEDS: PANTOPRAZOLE SODIUM 40 MG TABLET.DR PO SCH (06:07)
[2018-05-12 06:35] LABS: CARBON DIOXIDE 31 mmol/L (21-32); CHLORIDE 104 mmol/L (98-107); CREATININE 1.1 mg/dL (0.6-1.3); GLUCOSE 162 mg/dL (74-106); MAGNESIUM 2.1 mg/dL (1.8-2.4); POTASSIUM 4.7 mmol/L (3.5-5.1); UREA NITROGEN, BLOOD 23 mg/dL (7-18)
[2018-05-12] MEDS: BLOOD SUGAR DIAGNOSTIC 1 EACH STRIP VI SCH ×4 (06:36→20:23)
[2018-05-12 06:45] LABS: BASOPHILS % (AUTO) 0.4 % (0.0-2.0); EOSINOPHILS # (AUTO) 0.1 K/uL (0.0-0.7); EOSINOPHILS % (AUTO) 1.9 % (0.0-7.0); HEMATOCRIT 30.4 % (31.2-41.9); HEMOGLOBIN 10.3 g/dL (10.9-14.3); LYMPHOCYTES # (AUTO) 0.7 K/uL (20.0-40.0); LYMPHOCYTES % (AUTO) 13.1 % (20.5-51.5); MEAN CORPUSCULAR HEMOGLOBIN 30.1 uug (24.7-32.8); MEAN CORPUSCULAR HGB CONC 34 g/dL (32.3-35.6); MONOCYTES # (AUTO) 0.4 K/uL (2.0-10.0); MONOCYTES % (AUTO) 7.4 % (0.0-11.0); NEUTROPHILS # (AUTO) 3.9 K/uL (1.8-8.9); NEUTROPHILS % (AUTO) 77.2 % (38.5-71.5); PLATELET COUNT (AUTO) 63 K/uL (179-408); RED BLOOD CELL COUNT(AUTO) 3.42 MIL/uL (3.63-4.92)
[2018-05-12 06:57] LABS: WHITE BLOOD COUNT (AUTO) 5.1 K/uL (3.8-11.8)
--- NOTE | 2018-05-12 07:15 | NUR ---
RECEIVED PATIENT ON BED, ASLEEP AAOX1 WITH EPISODES OF AGITATION AND YELLING. NO ACUTE DISTRESS NOTED. IV ACCESS ON THE LEFT FOREARM #22 INTACT AND PATENT. NO COMPLAINTS OF PAIN/DISCOMFORT AT THIS TIME. FC IN PLACE AND DRAINING ALMA URINE. COMFORT MEASURES PROVIDED. WILL CONTINUE TO MONITOR CLOSELY, CALL LIGHT WITHIN REACH.
[2018-05-12] MEDS: INSULIN REGULAR, HUMAN 300 UNIT/3 ML VIAL SQ PRN ×4 (07:49→20:35)
[2018-05-12 07:58] LABS: EOSINOPHILS % (MANUAL) 1 % (0-8); LYMPHOCYTES % (MANUAL) 14 % (20-40); MONOCYTES % (MANUAL) 5 % (2-10); NEUTROPHILS % (MANUAL) 80 % (42-75)
[2018-05-12] MEDS: ESCITALOPRAM OXALATE 10 MG TABLET PO SCH (08:14)
[2018-05-12] MEDS: FUROSEMIDE 20 MG TABLET PO SCH (08:14)
[2018-05-12] MEDS: CALCIUM CARB/VITAMIN D 600-400 MG TABLET PO SCH ×2 (08:14→20:20)
[2018-05-12] MEDS: SPIRONOLACTONE 25 MG TABLET PO SCH (08:14)
[2018-05-12] MEDS: CHOLECALCIFEROL 1,000 UNIT TABLET PO SCH (08:14)
[2018-05-12] MEDS: LACTULOSE 20 G/30 ML LIQUID UDC PO SCH ×4 (08:15→20:21)
[2018-05-12] MEDS ORDERED: MISCELLANEOUS MED XX PRN (08:45)
[2018-05-12] MEDS ORDERED: LEVOFLOXACIN 500 MG TABLET PO SCH (09:00)
[2018-05-12] MEDS ORDERED: LEVOFLOXACIN 500 MG TABLET PO ONE (09:45)
[2018-05-12] MEDS: LORAZEPAM 2 MG/1 ML VIAL IV PRN (10:42)
[2018-05-12] MEDS ORDERED: LACTULOSE PR ONE ×2 (11:00)
[2018-05-12] MEDS ORDERED: SODIUM CHLORIDE PR ONE ×2 (11:00)
[2018-05-12 11:23] VITALS: BP 128/64
[2018-05-12 15:00] VITALS: BP 118/62
--- NOTE | 2018-05-12 17:32 | NUR ---
PATIENT REMAINED STABLE THROUGHOUT SHIFT REINSERTED NEW IV ACCESS ON THE LEFT FOREARM #22 INTAV Addendum: 05/12/18 at 1734 by AMI MENDOZA RN PATIENT REMAINED STABLE THROUGHOUT SHIFT REINSERTED NEW IV ACCESS ON THE LEFT FOREARM #22 INTACT AND PATENT. ON O2 @ 2LPM O2 SAT WNL. FC IN PLACE STILL DRAINING ALMA URINE. ALL NEEDS ATTENDED AND ANTICIPATED. CALL LIGHT WITHIN REACH WILL ENDORSE ACCORDINGLY
[2018-05-12 19:00] VITALS: BP 108/47
--- NOTE | 2018-05-12 19:30 | NUR ---
RECEIVED PATIENT IN BED AWAKE, BUT FORGETFUL, NO SOB NO CHEST PAIN NOTED, DENIES PAIN AT THIS TIME. DAUGHTER AT THE BEST AT THIS TIME. KEPT CLEAN AND DRY, PATIENT HAS MULTIPLE BRUISES ON R ARMS AND L ARMS, KEPT SITE CLEAN AND DRY AND COVERED. TURN AND REPOSITION, CALL LIGHTS WHION REACH.
[2018-05-12] MEDS: GUAIFENESIN LA 600 MG TABLET.SA PO SCH (20:22)
[2018-05-12] MEDS: INSULIN GLARGINE,HUM 300 UNITS/3 ML CARTRIDGE SQ SCH (20:34)
[2018-05-13] MEDS: HYDROCODONE/APAP 5-325MG TABLET PO PRN ×3 (00:14→15:35)
[2018-05-13 04:00] VITALS: BP 122/57
[2018-05-13] MEDS ORDERED: LEVOFLOXACIN 250 MG TABLET PO SCH (06:00)
[2018-05-13] MEDS: PANTOPRAZOLE SODIUM 40 MG TABLET.DR PO SCH (06:01)
[2018-05-13] MEDS: BLOOD SUGAR DIAGNOSTIC 1 EACH STRIP VI SCH ×3 (06:12→17:02)
--- NOTE | 2018-05-13 06:17 | NUR ---
PATIENT SLEPT MOST OF THE NIGHT, MEDICATED FOR PAIN AND DISCOMFORT, WITH NO ADVERSE REACTION NOTED, PATIENT STILL MOIST COUGH, KEPT HOB ELEVATED, ON OXYGEN 2 LPM, NO SOB NO CHEST PAIN NOTED. PATIENT PULLED OUT IV LINE, DID NOT PUT ANOTHER ONE DUE PATIENT HAS MULTIPLE LARGE BRUISES ON BOTH ARMS, PATIENT HAS PAPER THIN SKIN, RISK FOR SKIN TEARS, KEPT R ARM COVERED WITH KERLIX TO PROTECT THE SKIN. CHANG CATH PATENT DRAINING WITH YELLOW ALMA COLOR URINE IN MODERATE AMOUNT, KEPT CLEAN AND DRY, CONT TO MONITOR.
[2018-05-13 06:30] LABS: BASOPHILS % (AUTO) 0.7 % (0.0-2.0); EOSINOPHILS # (AUTO) 0.1 K/uL (0.0-0.7); EOSINOPHILS % (AUTO) 2.6 % (0.0-7.0); HEMATOCRIT 30.1 % (31.2-41.9); HEMOGLOBIN 10.3 g/dL (10.9-14.3); LYMPHOCYTES # (AUTO) 0.5 K/uL (20.0-40.0); LYMPHOCYTES % (AUTO) 13.6 % (20.5-51.5); MEAN CORPUSCULAR HEMOGLOBIN 29.8 uug (24.7-32.8); MEAN CORPUSCULAR HGB CONC 34 g/dL (32.3-35.6); MEAN CORPUSCULAR VOLUME 87.2 fL (75.5-95.3); MONOCYTES # (AUTO) 0.4 K/uL (2.0-10.0); MONOCYTES % (AUTO) 9.5 % (0.0-11.0); NEUTROPHILS # (AUTO) 2.9 K/uL (1.8-8.9); NEUTROPHILS % (AUTO) 73.6 % (38.5-71.5); PLATELET COUNT (AUTO) 60 K/uL (179-408); RED BLOOD CELL COUNT(AUTO) 3.45 MIL/uL (3.63-4.92); WHITE BLOOD COUNT (AUTO) 3.9 K/uL (3.8-11.8)
[2018-05-13 07:07] LABS: CARBON DIOXIDE 27 mmol/L (21-32); CHLORIDE 107 mmol/L (98-107); CREATININE 1.2 mg/dL (0.6-1.3); GLUCOSE 205 mg/dL (74-106); PHOSPHOROUS 3.3 mg/dL (2.5-4.9); POTASSIUM 4.8 mmol/L (3.5-5.1); UREA NITROGEN, BLOOD 22 mg/dL (7-18)
--- NOTE | 2018-05-13 07:22 | NUR ---
PATIENT ASLEEP, AAOX1 . NO ACUTE DISTRESS NOTED. NO IV ACCESS. NO COMPLAINTS OF PAIN/DISCOMFORT AT THIS TIME. FC IN PLACE AND DRAINING WELL. COMFORT MEASURES PROVIDED. WILL CONTINUE TO MONITOR CLOSELY, CALL LIGHT WITHIN REACH.
[2018-05-13] MEDS: INSULIN REGULAR, HUMAN 300 UNIT/3 ML VIAL SQ PRN ×3 (07:55→17:04)
[2018-05-13 08:14] LABS: EOSINOPHILS % (MANUAL) 2 % (0-8); LYMPHOCYTES % (MANUAL) 14 % (20-40); MONOCYTES % (MANUAL) 10 % (2-10); NEUTROPHILS % (MANUAL) 74 % (42-75)
[2018-05-13] MEDS: LACTULOSE 20 G/30 ML LIQUID UDC PO SCH ×3 (08:43→16:55)
[2018-05-13] MEDS: CHOLECALCIFEROL 1,000 UNIT TABLET PO SCH (08:44)
[2018-05-13] MEDS: FUROSEMIDE 20 MG TABLET PO SCH (08:44)
[2018-05-13] MEDS: SPIRONOLACTONE 25 MG TABLET PO SCH (08:44)
[2018-05-13] MEDS: ESCITALOPRAM OXALATE 10 MG TABLET PO SCH (08:44)
[2018-05-13] MEDS: CALCIUM CARB/VITAMIN D 600-400 MG TABLET PO SCH (08:47)
[2018-05-13] MEDS: GUAIFENESIN LA 600 MG TABLET.SA PO SCH (08:54)
[2018-05-13] MEDS ORDERED: MISCELLANEOUS MED XX PRN (10:15)
[2018-05-13] MEDS ORDERED: IRR STERIL WATER FOR IRR 700 ML, LACTULOSE 200 G PR ONE ×4 (10:45→15:00)
[2018-05-13] MEDS ORDERED: GUAI600T53 PO (11:00)
[2018-05-13] MEDS ORDERED: Levofloxacin PO (11:00)
[2018-05-13] MEDS ORDERED: ESCI10TA PO (11:00)
[2018-05-13] MEDS ORDERED: Insulin Glargine,Hum SQ (11:00)
[2018-05-13] MEDS ORDERED: LACT10SO7 PO (11:00)
[2018-05-13 11:30] VITALS: BP 113/66
[2018-05-13 15:15] VITALS: BP 112/53
--- NOTE | 2018-05-13 19:48 | NUR ---
RECEIVED PATIENT IN BED AWAKE, VERBALLY RESPONSIVE, PATIENT FOR DISCHARGE TO [facility], AM RN GAVE REPORT TO ARI GUILLAUME AT SNF. GAVE REPORT TO [facility] STAFF. PATIENT TOOK ALL BELONGINGS. PATIENT IN FAIR AND STABLE CONDITION. .
== END 2018-05-13 19:50 | DRG 279 ==
LOC: ER 19:29 → TELE 22:01 → MED 05-08 18:45
PROVIDERS: ADMIT Hospitalist; ATTEND Hospitalist
DX: K72.00 Acute and subacute hepatic failure without coma (principal); I50.33 Acute on chronic diastolic (congestive) heart failure; J18.9 Pneumonia, unspecified organism; G92 Toxic encephalopathy; E44.0 Moderate protein-calorie malnutrition; D61.818 Other pancytopenia; E11.65 Type 2 diabetes mellitus with hyperglycemia; I11.0 Hypertensive heart disease with heart failure; F03.90 Unspecified dementia, unspecified severity, without behavioral disturbance, psychotic disturbance, mood disturbance, and anxiety; K74.60 Unspecified cirrhosis of liver; B19.20 Unspecified viral hepatitis C without hepatic coma; J01.30 Acute sphenoidal sinusitis, unspecified; E66.9 Obesity, unspecified; Z68.27 Body mass index [BMI] 27.0-27.9, adult; Z71.3 Dietary counseling and surveillance; M81.0 Age-related osteoporosis without current pathological fracture; E78.5 Hyperlipidemia, unspecified; K21.9 Gastro-esophageal reflux disease without esophagitis; Z79.4 Long term (current) use of insulin; Z87.891 Personal history of nicotine dependence; Z85.05 Personal history of malignant neoplasm of liver; J44.0 Chronic obstructive pulmonary disease with (acute) lower respiratory infection
CPT/HCPCS: 36415; 70030-TC; 70450; 71045; 80307; 83605; 83690; 83735; 84100; 84443; 85025; 85730; 87040; 87086; 87400; 93005; 93307; 94664; A4217; A4663; G0378; J1815; J1940; J2060; J3490; J3590; J7040